=== PATIENT | male | born 1935 | race Caucasian/White ===

== ENCOUNTER → 2016-06-02 | Outpatient (CLI) | payer OTHER ==
[~2016-06-02] MED LIST: ACET-2247 NG; ACET650S14 PR; AMLO-511 PO; ASCO500 NG; ASCO500 PO; ASPI-891 PO; ASPI81 NG; BALS60OI TP; CLIN300C3 NG; COLL30OI TP; DSS100 PO; ENOX40DI9 SQ; FERR-89 NG; GABA-529 PO; GABA250S NG; GLUC1I IM; GUAIF10 PO; HYDR-305 PO; HYDR-309 PO; INSLAN SQ; INSNOV SQ; INSREG SQ; IPRA3AMP4 IH; LACT1CAP62 NG; METF500T4 PO; METF850T2 PO; METO25 PO; MOM30 PO; MULT-1192 PO; OMEP20 NG; POLY15DR38 OP; PROP10 PO; TAMS0.4C32 PO; TRAZ-144 PO; [UNRECOGNIZED DRUG - CODE] PO
== END | disposition home or self-care (01) ==
LOC: RADMN 09:40
PROVIDERS: ATTEND Internal Medicine
DX: R13.12 Dysphagia, oropharyngeal phase (principal)
CPT/HCPCS: 74230; 92611

== ENCOUNTER 2016-07-23 16:13 | Inpatient (IN) | payer MEDICARE, MEDICAID ==
[~2016-07-23] VITALS: Ht 157.5 cm; Wt 60.1 kg
[2016-07-23] MEDS ORDERED: SODIUM CHLORIDE 0.9% 500 ML IV ONE (16:30)
[2016-07-23 16:47] LABS: GLUCOSE,POINT OF CARE 103 MG/DL (70-110)
[2016-07-23 16:52] LABS: GLUCOSE,POINT OF CARE 108 MG/DL (70-110)
[2016-07-23] MEDS ORDERED: ASPI-891 PO (16:52)
[2016-07-23] MEDS ORDERED: DSS100 PO (16:52)
[2016-07-23 16:54] LABS: BASOPHILS % (AUTO) 0.5 % (0.0-2.0); EOSINOPHILS % (AUTO) 3.2 % (1.0-6.0); HEMATOCRIT 28.5 % (41-53); LYMPHOCYTES # (AUTO) 3.4 K/uL (1.0-4.8); LYMPHOCYTES % (AUTO) 26.4 % (22.0-44.0); MEAN CORPUSCULAR HEMOGLOBIN 25.6 pg (26.0-34.0); MEAN CORPUSCULAR HGB CONC 31.7 G/dL (31.0-37.0); MEAN CORPUSCULAR VOLUME 81 fL (80-100); MONOCYTES # (AUTO) 1.4 K/uL (0.1-1.0); MONOCYTES % (AUTO) 10.9 % (2.0-9.0); NEUTROPHILS # (AUTO) 7.7 K/uL (1.8-7.7); PLATELET COUNT (AUTO) 480 K/uL (150-450); RED BLOOD CELL COUNT(AUTO) 3.53 MIL/uL (4.50-5.90); RED CELL DISTRIBUTION WIDTH 19.3 % (11.5-14.5); WHITE BLOOD COUNT (AUTO) 13.1 K/uL (4.5-11.0)
[2016-07-23 16:55] LABS: RBC MORPHOLOGY COMMENT ABNORMAL RBC MORPH
[2016-07-23] MEDS ORDERED: ASCO500 PO (17:04)
[2016-07-23] MEDS ORDERED: OMEP20 NG (17:04)
[2016-07-23] MEDS ORDERED: FERR-89 NG (17:04)
[2016-07-23] MEDS ORDERED: GUAIF10 PO (17:04)
[2016-07-23] MEDS ORDERED: INSLAN SQ (17:04)
[2016-07-23] MEDS ORDERED: GABA-529 PO (17:04)
[2016-07-23] MEDS ORDERED: GLUC1I IM (17:04)
[2016-07-23] MEDS ORDERED: METF500T4 PO (17:04)
[2016-07-23] MEDS ORDERED: PROP10 PO (17:04)
[2016-07-23] MEDS ORDERED: TRAZ-144 PO (17:04)
[2016-07-23] MEDS ORDERED: TAMS0.4C32 PO (17:04)
[2016-07-23] MEDS ORDERED: MULT-1192 PO (17:04)
[2016-07-23] MEDS ORDERED: COLL30OI TP (17:04)
[2016-07-23] MEDS ORDERED: ENOX40DI9 SQ (17:04)
[2016-07-23] MEDS ORDERED: IPRA3AMP4 IH (17:04)
[2016-07-23] MEDS ORDERED: INSNOV SQ (17:04)
[2016-07-23 17:10] LABS: ALANINE AMINOTRANSFERASE 8 U/L (12-78); ALBUMIN 2.1 g/dL (3.4-5.0); ANION GAP 7 mmol/L (8-16); ASPARTATE AMINOTRANSFERASE 16 U/L (15-37); BILIRUBIN,TOTAL 0.2 mg/dL (0.1-1.0); CARBON DIOXIDE 26 mmol/L (22-29); CHLORIDE 102 mmol/L (98-107); CREATININE 0.96 mg/dL (0.60-1.30); GLOMERULAR FILTR. RATE CALC > 60 mL/min (>60); POTASSIUM 4.9 mmol/L (3.5-5.1); SODIUM SERUM 135 mmol/L (136-145); TOTAL PROTEIN, SERUM 8.3 g/dL (6.4-8.2); UREA NITROGEN, BLOOD 21 mg/dL (7-18)
[2016-07-23 17:15] LABS: CALCIUM, TOTAL 9.3 mg/dL (8.8-10.5)
[2016-07-23] MEDS ORDERED: VANCOMYCIN HCL 1 GM/D5% WATER 200 ML IV ONE (17:30)
[2016-07-23 17:47] LABS: APPEARANCE,URINE TURBID (CLEAR); GLUCOSE, URINE (UA) NEGATIVE (NEGATIVE); KETONES,URINE NEGATIVE (NEGATIVE); LEUKOCYTE ESTERASE ,URINE LARGE (NEGATIVE); OCCULT BLOOD,URINE SMALL (NEGATIVE); PROTEIN,URINE SEE CONFIRM (NEGATIVE)
[2016-07-23 17:49] LABS: PROTHROMBIN TIME 10.8 SEC (9.4-11.6)
[2016-07-23 18:22] LABS: ADD UA MICROSCOPIC YES
[2016-07-23 18:24] LABS: SULFOSALICYLIC ACID,URINE 1+ (Negative); WBC,URINE >100 /HPF (0-5)
[2016-07-23 18:26] LABS: SQUAMOUS EPITHELIAL CELL,UR Few /LPF (None Seen)
[2016-07-23 18:57] LABS: GLUCOSE,POINT OF CARE 67 MG/DL (70-110)
[2016-07-23] MEDS ORDERED: DEXTROSE 50%-WATER 25 GM/50 ML SYRINGE IVP ONE (19:15)
[2016-07-23] MEDS ORDERED: BISACODYL 10 MG RECTAL RECTAL SUPPOSITORY PR PRN (19:45)
[2016-07-23] MEDS ORDERED: IPRATROPIUM BROMIDE 0.5 MG/2.5 ML NEB SOLUTION NEB PRN (19:45)
[2016-07-23] MEDS ORDERED: ACETAMINOPHEN 325 MG TABLET PO PRN (19:45)
[2016-07-23] MEDS ORDERED: ONDANSETRON HCL 4 MG/2 ML VIAL IVP PRN (19:45)
[2016-07-23] MEDS ORDERED: MAGNESIUM HYDROXIDE SUSPENSION 30 ML UDCUP PO PRN (19:45)
[2016-07-23] MEDS ORDERED: ZOLPIDEM TARTRATE 5 MG TABLET PO PRN (19:45)
[2016-07-23] MEDS ORDERED: ALBUTEROL SULFATE 2.5 MG/0.5 ML NEB SOLUTION NEB PRN (19:45)
[2016-07-23] MEDS ORDERED: HEPARIN SODIUM,PORCINE 5,000 UNITS/ML VIAL IVP ONE (20:15)
[2016-07-23] MEDS ORDERED: HEPARIN SODIUM,PORCINE 5,000 UNITS/ML VIAL IVP PRN ×2 (20:15)
[2016-07-23 20:52] LABS: PROCALCITONIN (PCT) < 0.05 ng/mL (<0.50)
[2016-07-23] MEDS ORDERED: DOCUSATE SODIUM 100 MG CAPSULE PO SCH (21:00)
[2016-07-23 21:45] VITALS: BP 147/76
[2016-07-23] MEDS: DEXTROSE 5%-0.45% SODIUM CHL 1,000 ML IV SCH (21:56)
[2016-07-23] MEDS: PIPERACILLIN/TAZO 3.375 GM/D5W 50 ML IV SCH (21:56)
[2016-07-23] MEDS: TraZODone HCL 50 MG TABLET PO SCH (22:01)
[2016-07-23] MEDS: ASCORBIC ACID 500 MG TABLET PO SCH (22:01)
[2016-07-23] MEDS: GABAPENTIN 100 MG CAPSULE PO SCH (22:01)
[2016-07-23] MEDS: HEPARIN SODIUM 25000 UNITS/D5W 250 ML IV PRN (22:50)
[2016-07-23 23:34] VITALS: BP 145/71
[2016-07-24] MEDS ORDERED: HEPARIN SODIUM,PORCINE 5,000 UNITS/ML VIAL SQ SCH
[2016-07-24] MEDS: MORPHINE SULFATE 2 MG/ML SYRINGE IVP PRN ×6 (02:12→18:21)
[2016-07-24] MEDS: PIPERACILLIN/TAZO 3.375 GM/D5W 50 ML IV SCH ×4 (02:12→22:50)
[2016-07-24 04:35] VITALS: BP 142/77
[2016-07-24 06:12] LABS: BASOPHILS % (AUTO) 0.9 % (0.0-2.0); EOSINOPHILS % (AUTO) 5.4 % (1.0-6.0); HEMATOCRIT 25.6 % (41-53); HEMOGLOBIN 8.2 g/dL (13.5-17.5); LYMPHOCYTES # (AUTO) 3.2 K/uL (1.0-4.8); LYMPHOCYTES % (AUTO) 28.4 % (22.0-44.0); MEAN CORPUSCULAR HEMOGLOBIN 26.1 pg (26.0-34.0); MEAN CORPUSCULAR HGB CONC 31.9 G/dL (31.0-37.0); MEAN CORPUSCULAR VOLUME 82 fL (80-100); MONOCYTES # (AUTO) 1.2 K/uL (0.1-1.0); MONOCYTES % (AUTO) 10.7 % (2.0-9.0); NEUTROPHILS # (AUTO) 6.1 K/uL (1.8-7.7); NEUTROPHILS % (AUTO) 54.6 % (40.0-70.0); PLATELET COUNT (AUTO) 408 K/uL (150-450); RED BLOOD CELL COUNT(AUTO) 3.13 MIL/uL (4.50-5.90); RED CELL DISTRIBUTION WIDTH 19.2 % (11.5-14.5); WHITE BLOOD COUNT (AUTO) 11.2 K/uL (4.5-11.0)
[2016-07-24 06:46] LABS: ALANINE AMINOTRANSFERASE 7 U/L (12-78); ALBUMIN 1.8 g/dL (3.4-5.0); ANION GAP 11 mmol/L (8-16); ASPARTATE AMINOTRANSFERASE 18 U/L (15-37); BILIRUBIN,TOTAL 0.2 mg/dL (0.1-1.0); CALCIUM, TOTAL 8.4 mg/dL (8.8-10.5); CARBON DIOXIDE 24 mmol/L (22-29); CHLORIDE 104 mmol/L (98-107); CREATININE 0.82 mg/dL (0.60-1.30); GLOMERULAR FILTR. RATE CALC > 60 mL/min (>60); SODIUM SERUM 139 mmol/L (136-145); TOTAL PROTEIN, SERUM 7.2 g/dL (6.4-8.2); UREA NITROGEN, BLOOD 17 mg/dL (7-18)
[2016-07-24 07:05] LABS: RBC MORPHOLOGY COMMENT ABNORMAL RBC MORPH
[2016-07-24 07:15] VITALS: BP 143/80
[2016-07-24 08:03] LABS: HEMOGLOBIN A1C 7.8 % (4.5-6.2)
[2016-07-24] MEDS: PANTOPRAZOLE SODIUM 40 MG/VIAL IVP SCH (08:24)
[2016-07-24] MEDS: TAMSULOSIN HCL 0.4 MG CAPSULE PO SCH (10:11)
[2016-07-24] MEDS: ASCORBIC ACID 500 MG TABLET PO SCH ×2 (10:12→21:01)
[2016-07-24] MEDS: FERROUS SULFATE 325 MG EC TABLET PO SCH (10:12)
[2016-07-24] MEDS: PROPRANOLOL HCL 10 MG TABLET PO SCH (10:12)
[2016-07-24] MEDS: GABAPENTIN 100 MG CAPSULE PO SCH ×3 (10:12→21:01)
[2016-07-24] MEDS: MULTIVITAMINS, THERAPEUTIC TABLET PO SCH (10:12)
[2016-07-24] MEDS: ASPIRIN 325 MG EC TABLET PO SCH (10:13)
[2016-07-24] MEDS: DEXTROSE 5%-0.45% SODIUM CHL 1,000 ML IV SCH (11:41)
[2016-07-24 13:06] VITALS: BP 123/54
[2016-07-24] MEDS ORDERED: GADOBUTROL 1 MMOL/ML 10 ML VIAL IVP ONE (14:30)
[2016-07-24] MEDS ORDERED: LORazepam 2 MG/ML VIAL IVP ONE (14:30)
[2016-07-24] MEDS ORDERED: IOVERSOL 350 MG/ML 100 ML VIAL ONE (14:44)
[2016-07-24 17:28] LABS: APPEARANCE,URINE CLOUDY (CLEAR); GLUCOSE, URINE (UA) NEGATIVE (NEGATIVE); KETONES,URINE NEGATIVE (NEGATIVE); LEUKOCYTE ESTERASE ,URINE LARGE (NEGATIVE); OCCULT BLOOD,URINE NEGATIVE (NEGATIVE); PROTEIN,URINE POS 1+ (NEGATIVE)
[2016-07-24 17:47] LABS: ADD UA MICROSCOPIC YES
[2016-07-24 18:03] LABS: RBC,URINE None Seen /HPF (0-2); WBC,URINE 26-50 /HPF (0-5)
[2016-07-24 19:24] VITALS: BP 146/79
[2016-07-24] MEDS: TraZODone HCL 50 MG TABLET PO SCH (21:01)
[2016-07-24 23:41] VITALS: BP 142/76
[2016-07-25] MEDS: HEPARIN SODIUM 25000 UNITS/D5W 250 ML IV PRN ×2 (00:14→11:02)
[2016-07-25 02:36] LABS: HEMATOCRIT 26.7 % (41-53); HEMOGLOBIN 8.4 g/dL (13.5-17.5)
[2016-07-25] MEDS: PIPERACILLIN/TAZO 3.375 GM/D5W 50 ML IV SCH ×4 (04:35→20:42)
[2016-07-25 05:12] VITALS: BP 153/77
[2016-07-25 07:03] LABS: ALANINE AMINOTRANSFERASE 9 U/L (12-78); ALBUMIN 1.9 g/dL (3.4-5.0); ANION GAP 9 mmol/L (8-16); ASPARTATE AMINOTRANSFERASE 22 U/L (15-37); BILIRUBIN,TOTAL 0.2 mg/dL (0.1-1.0); CALCIUM, TOTAL 8.4 mg/dL (8.8-10.5); CARBON DIOXIDE 25 mmol/L (22-29); CHLORIDE 100 mmol/L (98-107); CREATININE 0.83 mg/dL (0.60-1.30); GLOMERULAR FILTR. RATE CALC > 60 mL/min (>60); POTASSIUM 4.4 mmol/L (3.5-5.1); SODIUM SERUM 134 mmol/L (136-145); TOTAL PROTEIN, SERUM 7.4 g/dL (6.4-8.2); UREA NITROGEN, BLOOD 11 mg/dL (7-18)
[2016-07-25 07:12] VITALS: BP 154/77
[2016-07-25] MEDS: FERROUS SULFATE 325 MG EC TABLET PO SCH (08:00)
[2016-07-25] MEDS: GABAPENTIN 100 MG CAPSULE PO SCH ×3 (09:00→20:42)
[2016-07-25] MEDS: ASCORBIC ACID 500 MG TABLET PO SCH ×2 (09:00→20:42)
[2016-07-25] MEDS: PROPRANOLOL HCL 10 MG TABLET PO SCH (09:00)
[2016-07-25] MEDS: TAMSULOSIN HCL 0.4 MG CAPSULE PO SCH (09:00)
[2016-07-25] MEDS: ASPIRIN 325 MG EC TABLET PO SCH (09:00)
[2016-07-25] MEDS: MULTIVITAMINS, THERAPEUTIC TABLET PO SCH (09:00)
[2016-07-25 09:11] LABS: BASOPHILS % (AUTO) 2.5 % (0.0-2.0); EOSINOPHILS % (AUTO) 5.5 % (1.0-6.0); HEMOGLOBIN 7.9 g/dL (13.5-17.5); LYMPHOCYTES # (AUTO) 3.1 K/uL (1.0-4.8); LYMPHOCYTES % (AUTO) 26.2 % (22.0-44.0); MEAN CORPUSCULAR HEMOGLOBIN 25.5 pg (26.0-34.0); MEAN CORPUSCULAR HGB CONC 31.8 G/dL (31.0-37.0); MEAN CORPUSCULAR VOLUME 80 fL (80-100); MONOCYTES # (AUTO) 1.3 K/uL (0.1-1.0); MONOCYTES % (AUTO) 11.1 % (2.0-9.0); NEUTROPHILS # (AUTO) 6.4 K/uL (1.8-7.7); NEUTROPHILS % (AUTO) 54.7 % (40.0-70.0); PLATELET COUNT (AUTO) 456 K/uL (150-450); RED BLOOD CELL COUNT(AUTO) 3.12 MIL/uL (4.50-5.90); RED CELL DISTRIBUTION WIDTH 18.9 % (11.5-14.5); WHITE BLOOD COUNT (AUTO) 11.7 K/uL (4.5-11.0)
[2016-07-25] MEDS ORDERED: SODIUM CHLORIDE 0.9% 100 ML ONE (09:24)
[2016-07-25] MEDS ORDERED: IOVERSOL 350 MG/ML 100 ML VIAL ONE (09:24)
[2016-07-25 09:26] LABS: INR 1.1 (0.9-1.1); PROTHROMBIN TIME 11.4 SEC (9.4-11.6)
[2016-07-25] MEDS: PANTOPRAZOLE SODIUM 40 MG/VIAL IVP SCH (10:18)
[2016-07-25] MEDS: DEXTROSE 5%-0.45% SODIUM CHL 1,000 ML IV SCH ×2 (10:21→23:04)
[2016-07-25 11:09] VITALS: BP 138/78
[2016-07-25 13:54] LABS: RBC MORPHOLOGY COMMENT ABNORMAL RBC MORPH
[2016-07-25 15:03] VITALS: BP 142/76
[2016-07-25 15:13] LABS: ABG A-A DIFF O2 37.5 mmHg (10-20.0); ABG BASE EXCESS -0.4 mmol/L (-2.0-3.0); ABG HCO3 24.3 mmol/L (22.0-26.0); ABG OXYHEMOGLOBIN 92.9 % (94.0-100.0); ABG PCO2 32 mmHg (35-45); ABG PH 7.477 (7.35-7.450); TEMPERATURE, FAHRENHEIT, BG 98.6 FAHREN (96.0-98.6)
[2016-07-25 15:14] LABS: ALLEN TEST, BLOOD GAS Positive
[2016-07-25] MEDS ORDERED: VANCOMYCIN HCL 1.25 GM in DEXTROSE 5%-WATER 250 ML IV ONE (16:00)
[2016-07-25 18:38] LABS: BASOPHILS % (AUTO) 0.4 % (0.0-2.0); EOSINOPHILS % (AUTO) 3.8 % (1.0-6.0); HEMATOCRIT 25.8 % (41-53); HEMOGLOBIN 8.1 g/dL (13.5-17.5); LYMPHOCYTES % (AUTO) 26.5 % (22.0-44.0); MEAN CORPUSCULAR HEMOGLOBIN 25.4 pg (26.0-34.0); MEAN CORPUSCULAR HGB CONC 31.4 G/dL (31.0-37.0); MEAN CORPUSCULAR VOLUME 81 fL (80-100); MONOCYTES # (AUTO) 1.3 K/uL (0.1-1.0); MONOCYTES % (AUTO) 11.9 % (2.0-9.0); NEUTROPHILS # (AUTO) 6.4 K/uL (1.8-7.7); NEUTROPHILS % (AUTO) 57.4 % (40.0-70.0); PLATELET COUNT (AUTO) 478 K/uL (150-450); RED CELL DISTRIBUTION WIDTH 18.4 % (11.5-14.5); WHITE BLOOD COUNT (AUTO) 11.2 K/uL (4.5-11.0)
[2016-07-25 19:02] LABS: RBC MORPHOLOGY COMMENT ABNORMAL RBC MORPH
[2016-07-25 20:19] VITALS: BP 95/60
[2016-07-25] MEDS: TraZODone HCL 50 MG TABLET PO SCH (20:42)
[2016-07-26 00:07] VITALS: BP 140/63
[2016-07-26] MEDS: MORPHINE SULFATE 2 MG/ML SYRINGE IVP PRN ×2 (00:23→05:23)
[2016-07-26 02:31] LABS: BASOPHILS % (AUTO) 0.6 % (0.0-2.0); EOSINOPHILS % (AUTO) 4.8 % (1.0-6.0); HEMATOCRIT 26.2 % (41-53); HEMOGLOBIN 8.3 g/dL (13.5-17.5); LYMPHOCYTES # (AUTO) 3.5 K/uL (1.0-4.8); LYMPHOCYTES % (AUTO) 27.2 % (22.0-44.0); MEAN CORPUSCULAR HEMOGLOBIN 25.6 pg (26.0-34.0); MEAN CORPUSCULAR HGB CONC 31.7 G/dL (31.0-37.0); MEAN CORPUSCULAR VOLUME 81 fL (80-100); MONOCYTES # (AUTO) 1.5 K/uL (0.1-1.0); MONOCYTES % (AUTO) 12.1 % (2.0-9.0); NEUTROPHILS # (AUTO) 7.1 K/uL (1.8-7.7); NEUTROPHILS % (AUTO) 55.3 % (40.0-70.0); PLATELET COUNT (AUTO) 490 K/uL (150-450); RED BLOOD CELL COUNT(AUTO) 3.25 MIL/uL (4.50-5.90); RED CELL DISTRIBUTION WIDTH 18.8 % (11.5-14.5); WHITE BLOOD COUNT (AUTO) 12.8 K/uL (4.5-11.0)
[2016-07-26 04:30] VITALS: BP 139/78
[2016-07-26] MEDS: PIPERACILLIN/TAZO 3.375 GM/D5W 50 ML IV SCH ×4 (04:36→20:37)
[2016-07-26] MEDS: HEPARIN SODIUM 25000 UNITS/D5W 250 ML IV PRN (05:06)
[2016-07-26 07:11] LABS: ALANINE AMINOTRANSFERASE 10 U/L (12-78); ALBUMIN 1.8 g/dL (3.4-5.0); ANION GAP 10 mmol/L (8-16); ASPARTATE AMINOTRANSFERASE 21 U/L (15-37); BILIRUBIN,TOTAL 0.3 mg/dL (0.1-1.0); CALCIUM, TOTAL 8.3 mg/dL (8.8-10.5); CARBON DIOXIDE 25 mmol/L (22-29); CHLORIDE 103 mmol/L (98-107); CREATININE 0.94 mg/dL (0.60-1.30); GLOMERULAR FILTR. RATE CALC > 60 mL/min (>60); POTASSIUM 3.4 mmol/L (3.5-5.1); SODIUM SERUM 138 mmol/L (136-145); THYROID STIMULATING HORMONE 1.44 uIU/mL (0.36-3.74); TOTAL PROTEIN, SERUM 7.1 g/dL (6.4-8.2); UREA NITROGEN, BLOOD 9 mg/dL (7-18)
[2016-07-26 07:32] VITALS: BP 142/76
[2016-07-26] MEDS: FERROUS SULFATE 325 MG EC TABLET PO SCH (08:00)
[2016-07-26] MEDS: MULTIVITAMINS, THERAPEUTIC TABLET PO SCH (08:25)
[2016-07-26] MEDS: ASCORBIC ACID 500 MG TABLET PO SCH ×2 (08:25→20:28)
[2016-07-26] MEDS: PROPRANOLOL HCL 10 MG TABLET PO SCH (08:25)
[2016-07-26] MEDS: ASPIRIN 325 MG EC TABLET PO SCH (08:25)
[2016-07-26] MEDS: TAMSULOSIN HCL 0.4 MG CAPSULE PO SCH (08:25)
[2016-07-26] MEDS: GABAPENTIN 100 MG CAPSULE PO SCH ×3 (08:25→20:28)
[2016-07-26] MEDS: PANTOPRAZOLE SODIUM 40 MG/VIAL IVP SCH (08:32)
[2016-07-26] MEDS: VANCOMYCIN HCL 1 GM/D5% WATER 200 ML IV SCH ×2 (08:32→20:28)
[2016-07-26] MEDS ORDERED: HEPARIN SODIUM 1000 UNITS/NS 500 ML ONE ×2 (10:56→11:19)
[2016-07-26] MEDS ORDERED: FentaNYL CITRATE-PF 100 MCG/2 ML VIAL ONE (10:56)
[2016-07-26] MEDS ORDERED: MIDAZOLAM HCL 2 MG/2 ML VIAL ONE (10:56)
[2016-07-26] MEDS ORDERED: LIDOCAINE HCL/PF 1% 30 ML VIAL ONE (10:57)
[2016-07-26] MEDS ORDERED: IOHEXOL 180 MG/ML 20 ML VIAL ONE (11:20)
[2016-07-26] MEDS ORDERED: ALTEPLASE 2 MG/VIAL IVCATH ONE (11:30)
[2016-07-26] MEDS ORDERED: HEPARIN SODIUM,PORCINE 1,000 UNITS/ML 10 ML VIAL ONE (11:37)
[2016-07-26] MEDS ORDERED: FentaNYL CITRATE-PF 100 MCG/2 ML VIAL IVP ONE (11:55)
[2016-07-26] MEDS ORDERED: MIDAZOLAM HCL 2 MG/2 ML VIAL IVP ONE (11:55)
[2016-07-26] MEDS ORDERED: IODIXANOL 320 MG/ML 100 ML VIAL ONE (12:01)
[2016-07-26] MEDS: DEXTROSE 5%-0.45% SODIUM CHL 1,000 ML IV SCH (12:20)
[2016-07-26] MEDS ORDERED: IOHEXOL 300 MG/ML 10 ML VIAL ONE (13:06)
[2016-07-26] MEDS ORDERED: HEPARIN SODIUM,PORCINE 5,000 UNITS/ML VIAL IVP ONE (13:10)
[2016-07-26] MEDS ORDERED: CLOPIDOGREL BISULFATE 300 MG TABLET PO ONE (14:30)
[2016-07-26 15:15] VITALS: BP 154/76
[2016-07-26] MEDS: ASPIRIN 81 MG CHEWABLE TABLET PO SCH (15:22)
[2016-07-26 19:24] VITALS: BP 162/84
[2016-07-26] MEDS: TraZODone HCL 50 MG TABLET PO SCH (20:28)
[2016-07-26 23:51] VITALS: BP 146/60
[2016-07-27] MEDS: HYDROCODONE/ACETAMINOPHEN 5-325 MG TABLET PO PRN ×3 (00:26→15:46)
[2016-07-27] MEDS: DEXTROSE 5%-0.45% SODIUM CHL 1,000 ML IV SCH (04:20)
[2016-07-27] MEDS: PIPERACILLIN/TAZO 3.375 GM/D5W 50 ML IV SCH ×4 (04:21→20:24)
[2016-07-27 04:38] LABS: GLUCOSE,POINT OF CARE 182 MG/DL (70-110)
[2016-07-27 04:38] LABS: GLUCOSE,POINT OF CARE 160 MG/DL (70-110)
[2016-07-27 04:38] LABS: GLUCOSE,POINT OF CARE 179 MG/DL (70-110)
[2016-07-27 04:38] LABS: GLUCOSE,POINT OF CARE 117 MG/DL (70-110)
[2016-07-27 04:38] LABS: GLUCOSE,POINT OF CARE 74 MG/DL (70-110)
[2016-07-27 04:38] LABS: GLUCOSE COMMENT 1 Received Meds; GLUCOSE,POINT OF CARE 146 MG/DL (70-110)
[2016-07-27 04:38] LABS: GLUCOSE,POINT OF CARE 147 MG/DL (70-110)
[2016-07-27 04:38] LABS: GLUCOSE,POINT OF CARE 184 MG/DL (70-110)
[2016-07-27 04:42] LABS: GLUCOSE,POINT OF CARE 151 MG/DL (70-110)
[2016-07-27 04:42] LABS: GLUCOSE,POINT OF CARE 229 MG/DL (70-110)
[2016-07-27 04:42] LABS: GLUCOSE,POINT OF CARE 125 MG/DL (70-110)
[2016-07-27 05:10] VITALS: BP 116/60
[2016-07-27 07:34] LABS: ALANINE AMINOTRANSFERASE 6 U/L (12-78); ALBUMIN 1.6 g/dL (3.4-5.0); ANION GAP 9 mmol/L (8-16); ASPARTATE AMINOTRANSFERASE 17 U/L (15-37); BILIRUBIN,TOTAL 0.3 mg/dL (0.1-1.0); CALCIUM, TOTAL 7.9 mg/dL (8.8-10.5); CARBON DIOXIDE 25 mmol/L (22-29); CHLORIDE 101 mmol/L (98-107); CREATININE 1.12 mg/dL (0.60-1.30); GLOMERULAR FILTR. RATE CALC > 60 mL/min (>60); POTASSIUM 3.3 mmol/L (3.5-5.1); SODIUM SERUM 135 mmol/L (136-145); TOTAL PROTEIN, SERUM 6.4 g/dL (6.4-8.2); UREA NITROGEN, BLOOD 13 mg/dL (7-18)
[2016-07-27 07:38] VITALS: BP 132/59
[2016-07-27] MEDS: ASPIRIN 325 MG EC TABLET PO SCH (07:55)
[2016-07-27] MEDS: ASPIRIN 81 MG CHEWABLE TABLET PO SCH (07:55)
[2016-07-27] MEDS: FERROUS SULFATE 325 MG EC TABLET PO SCH (07:55)
[2016-07-27] MEDS: MULTIVITAMINS, THERAPEUTIC TABLET PO SCH (07:55)
[2016-07-27] MEDS: CLOPIDOGREL BISULFATE 75 MG TABLET PO SCH (07:55)
[2016-07-27] MEDS: TAMSULOSIN HCL 0.4 MG CAPSULE PO SCH (07:55)
[2016-07-27] MEDS: DOCUSATE SODIUM 100 MG CAPSULE PO PRN (07:55)
[2016-07-27] MEDS: ASCORBIC ACID 500 MG TABLET PO SCH ×2 (07:56→20:24)
[2016-07-27] MEDS: GABAPENTIN 100 MG CAPSULE PO SCH ×3 (07:56→20:24)
[2016-07-27] MEDS: VANCOMYCIN HCL 1 GM/D5% WATER 200 ML IV SCH (08:04)
[2016-07-27] MEDS: PANTOPRAZOLE SODIUM 40 MG/VIAL IVP SCH (08:04)
[2016-07-27] MEDS: PROPRANOLOL HCL 10 MG TABLET PO SCH (09:00)
[2016-07-27 11:07] VITALS: BP 125/64
[2016-07-27 11:13] VITALS: BP 117/70
[2016-07-27] MEDS ORDERED: POTASSIUM CHLORIDE 20 MEQ ER TABLET PO ONE (14:00)
[2016-07-27] MEDS ORDERED: METF850T2 PO (14:00)
[2016-07-27] MEDS ORDERED: SODIUM CHLORIDE 0.9% 500 ML IV ONE (14:21)
[2016-07-27 15:40] VITALS: BP 145/65
[2016-07-27] MEDS ORDERED: DEXTROSE 50%-WATER 25 GM/50 ML SYRINGE IVP PRN (16:15)
[2016-07-27] MEDS: INSULIN ASPART 100 UNITS/ML SQ PRN ×2 (16:59→20:46)
[2016-07-27 19:29] VITALS: BP 150/64
[2016-07-27] MEDS: TraZODone HCL 50 MG TABLET PO SCH (20:24)
[2016-07-27] MEDS: MORPHINE SULFATE 2 MG/ML SYRINGE IVP PRN (20:25)
[2016-07-28] VITALS (7 sets, daily range): BP systolic 134–160; BP diastolic 63–86
[2016-07-28] MEDS: PIPERACILLIN/TAZO 3.375 GM/D5W 50 ML IV SCH ×4 (03:45→20:10)
[2016-07-28] MEDS: INSULIN ASPART 100 UNITS/ML SQ PRN ×4 (05:54→20:21)
[2016-07-28 07:01] LABS: BASOPHILS % (AUTO) 0.7 % (0.0-2.0); EOSINOPHILS % (AUTO) 5.3 % (1.0-6.0); HEMATOCRIT 26.8 % (41-53); HEMOGLOBIN 8.4 g/dL (13.5-17.5); LYMPHOCYTES # (AUTO) 2.5 K/uL (1.0-4.8); LYMPHOCYTES % (AUTO) 19.2 % (22.0-44.0); MEAN CORPUSCULAR HEMOGLOBIN 25.6 pg (26.0-34.0); MEAN CORPUSCULAR HGB CONC 31.3 G/dL (31.0-37.0); MEAN CORPUSCULAR VOLUME 82 fL (80-100); MONOCYTES # (AUTO) 1.5 K/uL (0.1-1.0); MONOCYTES % (AUTO) 11.5 % (2.0-9.0); NEUTROPHILS # (AUTO) 8.3 K/uL (1.8-7.7); NEUTROPHILS % (AUTO) 63.3 % (40.0-70.0); PLATELET COUNT (AUTO) 492 K/uL (150-450); RED BLOOD CELL COUNT(AUTO) 3.28 MIL/uL (4.50-5.90); RED CELL DISTRIBUTION WIDTH 19.1 % (11.5-14.5); WHITE BLOOD COUNT (AUTO) 13.2 K/uL (4.5-11.0)
[2016-07-28 07:30] LABS: ALANINE AMINOTRANSFERASE 7 U/L (12-78); ALBUMIN 1.6 g/dL (3.4-5.0); ANION GAP 7 mmol/L (8-16); ASPARTATE AMINOTRANSFERASE 16 U/L (15-37); BILIRUBIN,TOTAL 0.2 mg/dL (0.1-1.0); CALCIUM, TOTAL 7.9 mg/dL (8.8-10.5); CARBON DIOXIDE 25 mmol/L (22-29); CHLORIDE 103 mmol/L (98-107); CREATININE 1.14 mg/dL (0.60-1.30); GLOMERULAR FILTR. RATE CALC > 60 mL/min (>60); POTASSIUM 4.5 mmol/L (3.5-5.1); SODIUM SERUM 135 mmol/L (136-145); TOTAL PROTEIN, SERUM 6.6 g/dL (6.4-8.2); UREA NITROGEN, BLOOD 15 mg/dL (7-18)
[2016-07-28] MEDS ORDERED: VANCOMYCIN HCL 1 GM/D5% WATER 200 ML IV SCH (08:00)
[2016-07-28] MEDS: DOCUSATE SODIUM 100 MG CAPSULE PO PRN (08:03)
[2016-07-28] MEDS: ASCORBIC ACID 500 MG TABLET PO SCH ×2 (08:03→20:10)
[2016-07-28] MEDS: CLOPIDOGREL BISULFATE 75 MG TABLET PO SCH (08:03)
[2016-07-28] MEDS: FERROUS SULFATE 325 MG EC TABLET PO SCH (08:03)
[2016-07-28] MEDS: GABAPENTIN 100 MG CAPSULE PO SCH ×3 (08:03→20:10)
[2016-07-28] MEDS: MULTIVITAMINS, THERAPEUTIC TABLET PO SCH (08:03)
[2016-07-28] MEDS: ASPIRIN 81 MG CHEWABLE TABLET PO SCH (08:04)
[2016-07-28] MEDS: TAMSULOSIN HCL 0.4 MG CAPSULE PO SCH (08:04)
[2016-07-28] MEDS: PROPRANOLOL HCL 10 MG TABLET PO SCH (08:04)
[2016-07-28] MEDS: PANTOPRAZOLE SODIUM 40 MG/VIAL IVP SCH (08:22)
[2016-07-28 09:52] LABS: RBC MORPHOLOGY COMMENT ABNORMAL RBC MORPH
[2016-07-28] MEDS: HYDROCODONE/ACETAMINOPHEN 5-325 MG TABLET PO PRN (12:05)
[2016-07-28] MEDS: TraZODone HCL 50 MG TABLET PO SCH (20:10)
[2016-07-29] VITALS (15 sets, daily range): BP systolic 115–199; BP diastolic 64–96
[2016-07-29] MEDS: MORPHINE SULFATE 2 MG/ML SYRINGE IVP PRN ×4 (03:21→19:51)
[2016-07-29] MEDS: PIPERACILLIN/TAZO 3.375 GM/D5W 50 ML IV SCH ×4 (03:21→21:03)
[2016-07-29 07:30] LABS: BASOPHILS # (AUTO) 0.06 K/uL (0.00-0.20); BASOPHILS % (AUTO) 0.4 % (0.0-2.0); EOSINOPHILS # (AUTO) 0.79 K/uL (0.00-0.70); EOSINOPHILS % (AUTO) 5.82 % (1.0-6.0); HEMATOCRIT 24.2 % (41-53); HEMOGLOBIN 7.9 g/dL (13.5-17.5); LYMPHOCYTES # (AUTO) 3.7 K/uL (1.0-4.8); LYMPHOCYTES % (AUTO) 27.4 % (22.0-44.0); MEAN CORPUSCULAR HEMOGLOBIN 26.3 pg (26.0-34.0); MEAN CORPUSCULAR HGB CONC 32.8 G/dL (31.0-37.0); MEAN CORPUSCULAR VOLUME 80 fL (80-100); MONOCYTES # (AUTO) 1.3 K/uL (0.1-1.0); MONOCYTES % (AUTO) 9.8 % (2.0-9.0); NEUTROPHILS # (AUTO) 7.7 K/uL (1.8-7.7); NEUTROPHILS % (AUTO) 56.5 % (40.0-70.0); PLATELET COUNT (AUTO) 498 K/uL (150-450); RED BLOOD CELL COUNT(AUTO) 3.01 MIL/uL (4.50-5.90); RED CELL DISTRIBUTION WIDTH 19.4 % (11.5-14.5); WHITE BLOOD COUNT (AUTO) 13.5 K/uL (4.5-11.0)
[2016-07-29 07:56] LABS: ALANINE AMINOTRANSFERASE 7 U/L (12-78); ALBUMIN 1.7 g/dL (3.4-5.0); ANION GAP 9 mmol/L (8-16); ASPARTATE AMINOTRANSFERASE 18 U/L (15-37); BILIRUBIN,TOTAL 0.2 mg/dL (0.1-1.0); CALCIUM, TOTAL 8.1 mg/dL (8.8-10.5); CARBON DIOXIDE 25 mmol/L (22-29); CHLORIDE 102 mmol/L (98-107); CREATININE 0.96 mg/dL (0.60-1.30); GLOMERULAR FILTR. RATE CALC > 60 mL/min (>60); POTASSIUM 4.2 mmol/L (3.5-5.1); SODIUM SERUM 136 mmol/L (136-145); TOTAL PROTEIN, SERUM 6.8 g/dL (6.4-8.2); UREA NITROGEN, BLOOD 14 mg/dL (7-18)
[2016-07-29] MEDS: FERROUS SULFATE 325 MG EC TABLET PO SCH (08:00)
[2016-07-29] MEDS: PANTOPRAZOLE SODIUM 40 MG/VIAL IVP SCH (08:28)
[2016-07-29] MEDS: VANCOMYCIN HCL 1 GM/D5% WATER 200 ML IV SCH (08:49)
[2016-07-29] MEDS: ASPIRIN 81 MG CHEWABLE TABLET PO SCH (09:00)
[2016-07-29] MEDS: ASCORBIC ACID 500 MG TABLET PO SCH ×2 (09:00→21:01)
[2016-07-29] MEDS: CLOPIDOGREL BISULFATE 75 MG TABLET PO SCH (09:00)
[2016-07-29] MEDS: GABAPENTIN 100 MG CAPSULE PO SCH ×3 (09:00→21:01)
[2016-07-29 09:01] LABS: RBC MORPHOLOGY COMMENT ABNORMAL RBC MORPH
[2016-07-29] MEDS: INSULIN ASPART 100 UNITS/ML SQ PRN ×3 (11:50→21:19)
[2016-07-29] MEDS ORDERED: LIDOCAINE HCL/PF 1% 30 ML VIAL ONE (14:06)
[2016-07-29] MEDS ORDERED: HEPARIN SODIUM 1000 UNITS/NS 500 ML ONE (14:06)
[2016-07-29] MEDS ORDERED: SODIUM BICARBONATE 50 MEQ/50 ML VIAL ONE (14:06)
[2016-07-29] MEDS ORDERED: IODIXANOL 320 MG/ML 100 ML VIAL ONE (14:21)
[2016-07-29] MEDS ORDERED: SODIUM CHLORIDE 0.9% 500 ML IV ONE (14:38)
[2016-07-29] MEDS ORDERED: MIDAZOLAM HCL 2 MG/2 ML VIAL IVP ONE ×2 (14:40→15:53)
[2016-07-29] MEDS ORDERED: FentaNYL CITRATE-PF 100 MCG/2 ML VIAL IVP ONE ×2 (14:40→15:53)
[2016-07-29] MEDS ORDERED: FentaNYL CITRATE-PF 100 MCG/2 ML VIAL ONE (14:40)
[2016-07-29] MEDS ORDERED: MIDAZOLAM HCL 2 MG/2 ML VIAL ONE (14:41)
[2016-07-29] MEDS ORDERED: MAGNESIUM SULFATE 2 GM in DEXTROSE 5%-WATER 50 ML IV PRN (15:00)
[2016-07-29] MEDS ORDERED: MAGNESIUM SULFATE 4 GM/WATER 100 ML IV PRN (15:00)
[2016-07-29] MEDS ORDERED: LIDOCAINE 1% 30 ML/SOD BICARB 8.4% 4 ML SQ ONE (15:02)
[2016-07-29] MEDS ORDERED: HEPARIN SODIUM 1000 UNITS/NS 500 ML IARTER ONE (15:04)
[2016-07-29] MEDS ORDERED: HydrALAZINE HCL 20 MG/ML VIAL IVP ONE (15:22)
[2016-07-29] MEDS ORDERED: HydrALAZINE HCL 20 MG/ML VIAL ONE (15:26)
[2016-07-29] MEDS ORDERED: IODIXANOL 320 MG/ML 100 ML VIAL IARTER ONE (15:40)
[2016-07-29] MEDS ORDERED: HEPARIN SODIUM,PORCINE 5,000 UNITS/ML VIAL IVP ONE (16:20)
[2016-07-29] MEDS ORDERED: IODIXANOL 320 MG/ML 50 ML VIAL ONE (16:37)
[2016-07-29] MEDS: MULTIVITAMINS, THERAPEUTIC TABLET PO SCH (18:10)
[2016-07-29] MEDS: PROPRANOLOL HCL 10 MG TABLET PO SCH (18:11)
[2016-07-29] MEDS: TAMSULOSIN HCL 0.4 MG CAPSULE PO SCH (18:11)
[2016-07-29] MEDS: TraZODone HCL 50 MG TABLET PO SCH (21:01)
[2016-07-29] MEDS: MAGNESIUM OXIDE 400 MG TABLET PO PRN (21:25)
[2016-07-30] VITALS (7 sets, daily range): BP systolic 120–147; BP diastolic 56–77
[2016-07-30] MEDS: MAGNESIUM OXIDE 400 MG TABLET PO PRN ×2 (00:20→10:12)
[2016-07-30] MEDS: MORPHINE SULFATE 2 MG/ML SYRINGE IVP PRN ×2 (00:23→20:36)
[2016-07-30] MEDS: PIPERACILLIN/TAZO 3.375 GM/D5W 50 ML IV SCH ×4 (03:26→20:30)
[2016-07-30] MEDS: HYDROCODONE/ACETAMINOPHEN 5-325 MG TABLET PO PRN ×2 (03:31→20:54)
[2016-07-30] MEDS: INSULIN ASPART 100 UNITS/ML SQ PRN ×4 (06:02→20:38)
[2016-07-30 06:05] LABS: BASOPHILS % (AUTO) 0.5 % (0.0-2.0); EOSINOPHILS % (AUTO) 3.4 % (1.0-6.0); HEMATOCRIT 24.2 % (41-53); HEMOGLOBIN 7.6 g/dL (13.5-17.5); LYMPHOCYTES # (AUTO) 2.9 K/uL (1.0-4.8); LYMPHOCYTES % (AUTO) 23.6 % (22.0-44.0); MEAN CORPUSCULAR HEMOGLOBIN 25.6 pg (26.0-34.0); MEAN CORPUSCULAR HGB CONC 31.4 G/dL (31.0-37.0); MEAN CORPUSCULAR VOLUME 82 fL (80-100); MONOCYTES # (AUTO) 1.5 K/uL (0.1-1.0); MONOCYTES % (AUTO) 12.5 % (2.0-9.0); NEUTROPHILS # (AUTO) 7.3 K/uL (1.8-7.7); PLATELET COUNT (AUTO) 455 K/uL (150-450); RED BLOOD CELL COUNT(AUTO) 2.96 MIL/uL (4.50-5.90); RED CELL DISTRIBUTION WIDTH 18.9 % (11.5-14.5); WHITE BLOOD COUNT (AUTO) 12.2 K/uL (4.5-11.0)
[2016-07-30 07:29] LABS: ALANINE AMINOTRANSFERASE 9 U/L (12-78); ALBUMIN 1.7 g/dL (3.4-5.0); ANION GAP 9 mmol/L (8-16); ASPARTATE AMINOTRANSFERASE 16 U/L (15-37); BILIRUBIN,TOTAL 0.2 mg/dL (0.1-1.0); CALCIUM, TOTAL 8.2 mg/dL (8.8-10.5); CARBON DIOXIDE 25 mmol/L (22-29); CHLORIDE 101 mmol/L (98-107); CREATININE 0.94 mg/dL (0.60-1.30); GLOMERULAR FILTR. RATE CALC > 60 mL/min (>60); POTASSIUM 3.7 mmol/L (3.5-5.1); SODIUM SERUM 135 mmol/L (136-145); TOTAL PROTEIN, SERUM 6.8 g/dL (6.4-8.2); UREA NITROGEN, BLOOD 15 mg/dL (7-18)
[2016-07-30] MEDS: FERROUS SULFATE 325 MG EC TABLET PO SCH (07:54)
[2016-07-30] MEDS: PROPRANOLOL HCL 10 MG TABLET PO SCH (07:54)
[2016-07-30] MEDS: GABAPENTIN 100 MG CAPSULE PO SCH ×3 (07:54→20:30)
[2016-07-30] MEDS: MULTIVITAMINS, THERAPEUTIC TABLET PO SCH (07:55)
[2016-07-30] MEDS: ASCORBIC ACID 500 MG TABLET PO SCH ×2 (07:55→20:30)
[2016-07-30] MEDS: PANTOPRAZOLE SODIUM 40 MG/VIAL IVP SCH (07:57)
[2016-07-30] MEDS: VANCOMYCIN HCL 1 GM/D5% WATER 200 ML IV SCH (08:25)
[2016-07-30] MEDS: CLOPIDOGREL BISULFATE 75 MG TABLET PO SCH (09:00)
[2016-07-30] MEDS: ASPIRIN 81 MG CHEWABLE TABLET PO SCH (09:00)
[2016-07-30] MEDS: TAMSULOSIN HCL 0.4 MG CAPSULE PO SCH (10:20)
[2016-07-30] MEDS ORDERED: 0.9% SODIUM CHLORIDE 10 ML SYRINGE IVP PRN (11:30)
[2016-07-30 11:51] LABS: RBC MORPHOLOGY COMMENT ABNORMAL RBC MORPH
[2016-07-30] MEDS: TraZODone HCL 50 MG TABLET PO SCH (20:30)
[2016-07-31] MEDS: PIPERACILLIN/TAZO 3.375 GM/D5W 50 ML IV SCH ×4 (03:18→20:48)
[2016-07-31 04:42] VITALS: BP 108/84
[2016-07-31] MEDS: HYDROCODONE/ACETAMINOPHEN 5-325 MG TABLET PO PRN ×2 (05:05→20:47)
[2016-07-31] MEDS: INSULIN ASPART 100 UNITS/ML SQ PRN ×4 (06:36→20:49)
[2016-07-31 06:57] LABS: ANION GAP 8 mmol/L (8-16); CALCIUM, TOTAL 7.9 mg/dL (8.8-10.5); CARBON DIOXIDE 26 mmol/L (22-29); CHLORIDE 102 mmol/L (98-107); CREATININE 1.08 mg/dL (0.60-1.30); GLOMERULAR FILTR. RATE CALC > 60 mL/min (>60); POTASSIUM 3.7 mmol/L (3.5-5.1); SODIUM SERUM 136 mmol/L (136-145); UREA NITROGEN, BLOOD 16 mg/dL (7-18)
[2016-07-31 07:22] LABS: BASOPHILS % (AUTO) 0.3 % (0.0-2.0); EOSINOPHILS % (AUTO) 4.2 % (1.0-6.0); HEMATOCRIT 22.7 % (41-53); HEMOGLOBIN 7.3 g/dL (13.5-17.5); LYMPHOCYTES # (AUTO) 3.4 K/uL (1.0-4.8); LYMPHOCYTES % (AUTO) 28.6 % (22.0-44.0); MEAN CORPUSCULAR HGB CONC 31.9 G/dL (31.0-37.0); MEAN CORPUSCULAR VOLUME 82 fL (80-100); MONOCYTES # (AUTO) 1.5 K/uL (0.1-1.0); MONOCYTES % (AUTO) 12.5 % (2.0-9.0); NEUTROPHILS # (AUTO) 6.5 K/uL (1.8-7.7); NEUTROPHILS % (AUTO) 54.4 % (40.0-70.0); PLATELET COUNT (AUTO) 434 K/uL (150-450); RED BLOOD CELL COUNT(AUTO) 2.79 MIL/uL (4.50-5.90); RED CELL DISTRIBUTION WIDTH 19.8 % (11.5-14.5)
[2016-07-31 07:30] VITALS: BP 104/52
[2016-07-31] MEDS: PANTOPRAZOLE SODIUM 40 MG/VIAL IVP SCH (08:14)
[2016-07-31] MEDS: VANCOMYCIN HCL 1 GM/D5% WATER 200 ML IV SCH (08:22)
[2016-07-31] MEDS: PROPRANOLOL HCL 10 MG TABLET PO SCH (09:00)
[2016-07-31 09:26] LABS: RBC MORPHOLOGY COMMENT ABNORMAL RBC MORPH
[2016-07-31] MEDS: FERROUS SULFATE 325 MG EC TABLET PO SCH (09:29)
[2016-07-31] MEDS: TAMSULOSIN HCL 0.4 MG CAPSULE PO SCH (09:30)
[2016-07-31] MEDS: ASPIRIN 81 MG CHEWABLE TABLET PO SCH (09:30)
[2016-07-31] MEDS: CLOPIDOGREL BISULFATE 75 MG TABLET PO SCH (09:31)
[2016-07-31] MEDS: MULTIVITAMINS, THERAPEUTIC TABLET PO SCH (09:31)
[2016-07-31] MEDS: GABAPENTIN 100 MG CAPSULE PO SCH ×3 (09:31→20:47)
[2016-07-31] MEDS: ASCORBIC ACID 500 MG TABLET PO SCH ×2 (09:32→20:47)
[2016-07-31 11:07] VITALS: BP 137/60
[2016-07-31 15:31] VITALS: BP 146/57
[2016-07-31 19:29] VITALS: BP 142/65
[2016-07-31 20:12] LABS: GLUCOSE COMMENT 1 Received Meds; GLUCOSE,POINT OF CARE 255 MG/DL (70-110)
[2016-07-31 20:16] LABS: GLUCOSE COMMENT 1 Doctor Notified; GLUCOSE,POINT OF CARE 326 MG/DL (70-110)
[2016-07-31 20:17] LABS: GLUCOSE COMMENT 1 Received Meds; GLUCOSE,POINT OF CARE 175 MG/DL (70-110)
[2016-07-31 20:27] LABS: GLUCOSE COMMENT 1 Received Meds; GLUCOSE,POINT OF CARE 184 MG/DL (70-110)
[2016-07-31 20:27] LABS: GLUCOSE,POINT OF CARE 121 MG/DL (70-110)
[2016-07-31 20:32] LABS: GLUCOSE,POINT OF CARE 138 MG/DL (70-110)
[2016-07-31 20:32] LABS: GLUCOSE COMMENT 1 Received Meds; GLUCOSE,POINT OF CARE 180 MG/DL (70-110)
[2016-07-31] MEDS: TraZODone HCL 50 MG TABLET PO SCH (20:47)
[2016-08-01] VITALS (7 sets, daily range): BP systolic 114–159; BP diastolic 60–84
[2016-08-01] MEDS: HYDROCODONE/ACETAMINOPHEN 5-325 MG TABLET PO PRN ×3 (00:51→18:05)
[2016-08-01] MEDS: PIPERACILLIN/TAZO 3.375 GM/D5W 50 ML IV SCH ×4 (03:38→20:06)
[2016-08-01] MEDS: INSULIN ASPART 100 UNITS/ML SQ PRN ×4 (06:09→21:25)
[2016-08-01 06:51] LABS: BASOPHILS % (AUTO) 0.7 % (0.0-2.0); EOSINOPHILS % (AUTO) 4.6 % (1.0-6.0); HEMATOCRIT 22.3 % (41-53); HEMOGLOBIN 7.1 g/dL (13.5-17.5); LYMPHOCYTES # (AUTO) 3.6 K/uL (1.0-4.8); LYMPHOCYTES % (AUTO) 30.4 % (22.0-44.0); MEAN CORPUSCULAR VOLUME 81 fL (80-100); MONOCYTES # (AUTO) 1.4 K/uL (0.1-1.0); MONOCYTES % (AUTO) 12.1 % (2.0-9.0); NEUTROPHILS # (AUTO) 6.2 K/uL (1.8-7.7); NEUTROPHILS % (AUTO) 52.2 % (40.0-70.0); PLATELET COUNT (AUTO) 440 K/uL (150-450); RED BLOOD CELL COUNT(AUTO) 2.74 MIL/uL (4.50-5.90); RED CELL DISTRIBUTION WIDTH 19.6 % (11.5-14.5); WHITE BLOOD COUNT (AUTO) 11.9 K/uL (4.5-11.0)
[2016-08-01 07:10] LABS: ANION GAP 8 mmol/L (8-16); CARBON DIOXIDE 26 mmol/L (22-29); CHLORIDE 103 mmol/L (98-107); GLOMERULAR FILTR. RATE CALC > 60 mL/min (>60); SODIUM SERUM 137 mmol/L (136-145); UREA NITROGEN, BLOOD 16 mg/dL (7-18)
[2016-08-01] MEDS: PANTOPRAZOLE SODIUM 40 MG/VIAL IVP SCH (08:17)
[2016-08-01] MEDS: FERROUS SULFATE 325 MG EC TABLET PO SCH (08:17)
[2016-08-01] MEDS: ASCORBIC ACID 500 MG TABLET PO SCH ×2 (08:17→20:06)
[2016-08-01] MEDS: MULTIVITAMINS, THERAPEUTIC TABLET PO SCH (08:17)
[2016-08-01] MEDS: VANCOMYCIN HCL 1 GM/D5% WATER 200 ML IV SCH (08:17)
[2016-08-01] MEDS: CLOPIDOGREL BISULFATE 75 MG TABLET PO SCH (08:17)
[2016-08-01] MEDS: GABAPENTIN 100 MG CAPSULE PO SCH ×3 (08:17→20:06)
[2016-08-01] MEDS: ASPIRIN 81 MG CHEWABLE TABLET PO SCH (08:18)
[2016-08-01] MEDS: PROPRANOLOL HCL 10 MG TABLET PO SCH (08:18)
[2016-08-01] MEDS: TAMSULOSIN HCL 0.4 MG CAPSULE PO SCH (08:18)
[2016-08-01] MEDS: TraZODone HCL 50 MG TABLET PO SCH (20:06)
[2016-08-01] MEDS ORDERED: SODIUM CHLORIDE 0.9% 100 ML ONE (22:02)
[2016-08-02 03:48] VITALS: BP 160/70
[2016-08-02] MEDS: PIPERACILLIN/TAZO 3.375 GM/D5W 50 ML IV SCH ×4 (04:51→20:49)
[2016-08-02] MEDS: HYDROCODONE/ACETAMINOPHEN 5-325 MG TABLET PO PRN ×3 (05:28→18:24)
[2016-08-02] MEDS: INSULIN ASPART 100 UNITS/ML SQ PRN ×4 (05:34→21:28)
[2016-08-02 07:13] VITALS: BP 154/78
[2016-08-02 07:36] LABS: ANION GAP 10 mmol/L (8-16); CALCIUM, TOTAL 8.3 mg/dL (8.8-10.5); CARBON DIOXIDE 25 mmol/L (22-29); CHLORIDE 100 mmol/L (98-107); CREATININE 0.88 mg/dL (0.60-1.30); GLOMERULAR FILTR. RATE CALC > 60 mL/min (>60); SODIUM SERUM 135 mmol/L (136-145); UREA NITROGEN, BLOOD 12 mg/dL (7-18)
[2016-08-02] MEDS: MULTIVITAMINS, THERAPEUTIC TABLET PO SCH (08:45)
[2016-08-02] MEDS: GABAPENTIN 100 MG CAPSULE PO SCH ×3 (08:45→20:49)
[2016-08-02] MEDS: FERROUS SULFATE 325 MG EC TABLET PO SCH (08:46)
[2016-08-02] MEDS: TAMSULOSIN HCL 0.4 MG CAPSULE PO SCH (08:46)
[2016-08-02] MEDS: ASPIRIN 81 MG CHEWABLE TABLET PO SCH (08:46)
[2016-08-02] MEDS: ASCORBIC ACID 500 MG TABLET PO SCH ×2 (08:46→20:49)
[2016-08-02] MEDS: PROPRANOLOL HCL 10 MG TABLET PO SCH (08:46)
[2016-08-02] MEDS: CLOPIDOGREL BISULFATE 75 MG TABLET PO SCH (08:46)
[2016-08-02] MEDS: VANCOMYCIN HCL 1 GM/D5% WATER 200 ML IV SCH (08:47)
[2016-08-02] MEDS: PANTOPRAZOLE SODIUM 40 MG/VIAL IVP SCH (08:48)
[2016-08-02 10:00] LABS: HEMATOCRIT 22.9 % (41-53); HEMOGLOBIN 7.5 g/dL (13.5-17.5)
[2016-08-02] MEDS ORDERED: SODIUM CHLORIDE 0.9% 250 ML IV ONE (10:00)
[2016-08-02 11:27] VITALS: BP 152/80
[2016-08-02 15:18] VITALS: BP 109/57
[2016-08-02 20:14] VITALS: BP 133/68
[2016-08-02] MEDS: TraZODone HCL 50 MG TABLET PO SCH (20:49)
[2016-08-03] VITALS (11 sets, daily range): BP systolic 101–167; BP diastolic 44–89
[2016-08-03] MEDS: HYDROCODONE/ACETAMINOPHEN 5-325 MG TABLET PO PRN ×3 (01:19→21:48)
[2016-08-03] MEDS: PIPERACILLIN/TAZO 3.375 GM/D5W 50 ML IV SCH ×4 (02:37→21:46)
[2016-08-03] MEDS: MORPHINE SULFATE 2 MG/ML SYRINGE IVP PRN ×2 (06:15→23:43)
[2016-08-03] MEDS: INSULIN ASPART 100 UNITS/ML SQ PRN ×3 (06:16→21:53)
[2016-08-03 06:50] LABS: ANION GAP 10 mmol/L (8-16); CALCIUM, TOTAL 9.2 mg/dL (8.8-10.5); CARBON DIOXIDE 26 mmol/L (22-29); CHLORIDE 102 mmol/L (98-107); CREATININE 1.06 mg/dL (0.60-1.30); GLOMERULAR FILTR. RATE CALC > 60 mL/min (>60); POTASSIUM 4.4 mmol/L (3.5-5.1); SODIUM SERUM 138 mmol/L (136-145); UREA NITROGEN, BLOOD 13 mg/dL (7-18)
[2016-08-03] MEDS: VANCOMYCIN HCL 1 GM/D5% WATER 200 ML IV SCH (09:40)
[2016-08-03] MEDS: PANTOPRAZOLE SODIUM 40 MG/VIAL IVP SCH (09:40)
[2016-08-03] MEDS: FERROUS SULFATE 325 MG EC TABLET PO SCH (09:40)
[2016-08-03] MEDS: ASCORBIC ACID 500 MG TABLET PO SCH ×2 (09:41→21:48)
[2016-08-03] MEDS: TAMSULOSIN HCL 0.4 MG CAPSULE PO SCH (09:41)
[2016-08-03] MEDS: PROPRANOLOL HCL 10 MG TABLET PO SCH (09:41)
[2016-08-03] MEDS: CLOPIDOGREL BISULFATE 75 MG TABLET PO SCH (09:42)
[2016-08-03] MEDS: MULTIVITAMINS, THERAPEUTIC TABLET PO SCH (09:42)
[2016-08-03] MEDS: GABAPENTIN 100 MG CAPSULE PO SCH ×3 (09:42→21:48)
[2016-08-03] MEDS: ASPIRIN 81 MG CHEWABLE TABLET PO SCH (09:44)
[2016-08-03] MEDS ORDERED: MIDAZOLAM HCL 2 MG/2 ML VIAL ONE (14:59)
[2016-08-03] MEDS ORDERED: FentaNYL CITRATE-PF 100 MCG/2 ML VIAL ONE (14:59)
[2016-08-03] MEDS ORDERED: LIDOCAINE HCL/PF 1% 30 ML VIAL ONE (15:00)
[2016-08-03] MEDS ORDERED: IODIXANOL 320 MG/ML 100 ML VIAL ONE (15:00)
[2016-08-03] MEDS ORDERED: SODIUM BICARBONATE 50 MEQ/50 ML VIAL ONE (15:00)
[2016-08-03] MEDS ORDERED: HEPARIN SODIUM 1000 UNITS/NS 500 ML ONE ×2 (15:01→15:32)
[2016-08-03] MEDS ORDERED: MIDAZOLAM HCL 2 MG/2 ML VIAL IVP ONE (15:45)
[2016-08-03] MEDS ORDERED: HEPARIN SODIUM 1000 UNITS/NS 500 ML IV ONE (15:45)
[2016-08-03] MEDS ORDERED: LIDOCAINE 1% 30 ML/SOD BICARB 8.4% 4 ML SQ ONE (15:45)
[2016-08-03] MEDS ORDERED: FentaNYL CITRATE-PF 100 MCG/2 ML VIAL IVP ONE (15:45)
[2016-08-03] MEDS: TraZODone HCL 50 MG TABLET PO SCH (21:48)
[2016-08-04] VITALS: BP 134/64
[2016-08-04] MEDS: PIPERACILLIN/TAZO 3.375 GM/D5W 50 ML IV SCH ×3 (02:24→15:30)
[2016-08-04] MEDS: HYDROCODONE/ACETAMINOPHEN 5-325 MG TABLET PO PRN (03:09)
[2016-08-04 03:57] VITALS: BP 116/53
[2016-08-04 04:00] VITALS: BP 116/53
[2016-08-04] MEDS: INSULIN ASPART 100 UNITS/ML SQ PRN ×2 (06:11→11:57)
[2016-08-04 06:21] LABS: ANION GAP 7 mmol/L (8-16); CALCIUM, TOTAL 8.1 mg/dL (8.8-10.5); CARBON DIOXIDE 27 mmol/L (22-29); CHLORIDE 101 mmol/L (98-107); CREATININE 1.02 mg/dL (0.60-1.30); GLOMERULAR FILTR. RATE CALC > 60 mL/min (>60); POTASSIUM 4.3 mmol/L (3.5-5.1); SODIUM SERUM 135 mmol/L (136-145); UREA NITROGEN, BLOOD 16 mg/dL (7-18)
[2016-08-04 06:43] LABS: GLUCOSE COMMENT 1 Received Meds; GLUCOSE,POINT OF CARE 190 MG/DL (70-110)
[2016-08-04 06:43] LABS: GLUCOSE COMMENT 1 Received Meds; GLUCOSE,POINT OF CARE 180 MG/DL (70-110)
[2016-08-04 06:43] LABS: GLUCOSE COMMENT 1 Received Meds; GLUCOSE,POINT OF CARE 213 MG/DL (70-110)
[2016-08-04 06:43] LABS: GLUCOSE COMMENT 1 Received Meds; GLUCOSE,POINT OF CARE 247 MG/DL (70-110)
[2016-08-04 06:43] LABS: GLUCOSE COMMENT 1 Received Meds; GLUCOSE,POINT OF CARE 206 MG/DL (70-110)
[2016-08-04 06:47] LABS: GLUCOSE COMMENT 1 Received Meds; GLUCOSE,POINT OF CARE 161 MG/DL (70-110)
[2016-08-04 06:47] LABS: GLUCOSE COMMENT 1 Received Meds; GLUCOSE,POINT OF CARE 235 MG/DL (70-110)
[2016-08-04 06:48] LABS: GLUCOSE COMMENT 1 Received Meds; GLUCOSE,POINT OF CARE 274 MG/DL (70-110)
[2016-08-04 06:48] LABS: GLUCOSE COMMENT 1 Received Meds; GLUCOSE,POINT OF CARE 154 MG/DL (70-110)
[2016-08-04 06:48] LABS: GLUCOSE COMMENT 1 Received Meds; GLUCOSE,POINT OF CARE 277 MG/DL (70-110)
[2016-08-04 06:52] LABS: GLUCOSE COMMENT 1 Received Meds; GLUCOSE,POINT OF CARE 213 MG/DL (70-110)
[2016-08-04 07:12] LABS: GLUCOSE COMMENT 1 Received Meds; GLUCOSE,POINT OF CARE 183 MG/DL (70-110)
[2016-08-04 07:12] LABS: GLUCOSE COMMENT 1 Received Meds; GLUCOSE,POINT OF CARE 165 MG/DL (70-110)
[2016-08-04 07:34] VITALS: BP 147/72
[2016-08-04] MEDS: CLOPIDOGREL BISULFATE 75 MG TABLET PO SCH (08:57)
[2016-08-04] MEDS: ASPIRIN 81 MG CHEWABLE TABLET PO SCH (08:57)
[2016-08-04] MEDS: PROPRANOLOL HCL 10 MG TABLET PO SCH (08:57)
[2016-08-04] MEDS: FERROUS SULFATE 325 MG EC TABLET PO SCH (08:57)
[2016-08-04] MEDS: PANTOPRAZOLE SODIUM 40 MG/VIAL IVP SCH (08:59)
[2016-08-04] MEDS: GABAPENTIN 100 MG CAPSULE PO SCH ×2 (08:59→15:32)
[2016-08-04] MEDS: TAMSULOSIN HCL 0.4 MG CAPSULE PO SCH (08:59)
[2016-08-04] MEDS: MULTIVITAMINS, THERAPEUTIC TABLET PO SCH (08:59)
[2016-08-04] MEDS: ASCORBIC ACID 500 MG TABLET PO SCH (08:59)
[2016-08-04] MEDS: VANCOMYCIN HCL 1 GM/D5% WATER 200 ML IV SCH (09:01)
[2016-08-04 11:32] VITALS: BP 136/68
[2016-08-04 16:07] VITALS: BP 132/67
[2016-08-06 12:57] LABS: GLUCOSE COMMENT 1 Received Meds; GLUCOSE,POINT OF CARE 231 MG/DL (70-110)
[2016-08-07 16:48] LABS: GLUCOSE,POINT OF CARE 206 MG/DL (70-110)
[2016-08-07 16:48] LABS: GLUCOSE,POINT OF CARE 172 MG/DL (70-110)
[2016-08-07 16:52] LABS: GLUCOSE,POINT OF CARE 138 MG/DL (70-110)
[2016-08-07 16:53] LABS: GLUCOSE,POINT OF CARE 206 MG/DL (70-110)
[2016-08-07 16:53] LABS: GLUCOSE COMMENT 1 Received Meds; GLUCOSE,POINT OF CARE 203 MG/DL (70-110)
[2016-08-07 16:53] LABS: GLUCOSE COMMENT 1 Received Meds; GLUCOSE,POINT OF CARE 211 MG/DL (70-110)
[2016-08-07 16:53] LABS: GLUCOSE COMMENT 1 Received Meds; GLUCOSE,POINT OF CARE 190 MG/DL (70-110)
[2016-09-23] MEDS ORDERED: GABA250S NG (22:47)
[2016-10-07] MEDS ORDERED: LACT1CAP62 NG (19:48)
[2016-10-07] MEDS ORDERED: ASPI81 NG (19:48)
[2016-10-07] MEDS ORDERED: ASCO500 NG (19:48)
[2016-10-07] MEDS ORDERED: CLIN300C3 NG (19:48)
[2016-10-07] MEDS ORDERED: COLL30OI TP (19:58)
[2016-10-07] MEDS ORDERED: POLY15DR38 OU (19:58)
[2016-10-07] MEDS ORDERED: ACET-2247 NG (19:58)
[2016-10-07] MEDS ORDERED: TAMS0.4C32 PO (19:58)
[2016-10-07] MEDS ORDERED: BALS60OI TP (19:58)
[2016-10-07] MEDS ORDERED: MOM30 PO (19:58)
[2016-10-07] MEDS ORDERED: HYDR-305 PO (19:58)
[2016-10-07] MEDS ORDERED: INSREG SQ (20:02)
== END 2016-08-04 18:30 | DRG 853 ==
LOC: EMS 16:16 → 5S 18:22
PROVIDERS: ADMIT Hospitalist; ATTEND Hospitalist
PROC: 047L3ZZ Dilation of Left Femoral Artery, Percutaneous Approach (ICD-10-PCS; principal; 2016-07-26)
PROC: 047K3ZZ Dilation of Right Femoral Artery, Percutaneous Approach (ICD-10-PCS; 2016-07-29)
PROC: 047K3ZZ Dilation of Right Femoral Artery, Percutaneous Approach (ICD-10-PCS; 2016-08-03)
PROC: 047M3ZZ Dilation of Right Popliteal Artery, Percutaneous Approach (ICD-10-PCS; 2016-08-03)
DX: A41.9 Sepsis, unspecified organism (principal); G93.41 Metabolic encephalopathy; E43 Unspecified severe protein-calorie malnutrition; I63.9 Cerebral infarction, unspecified; E11.52 Type 2 diabetes mellitus with diabetic peripheral angiopathy with gangrene; N39.0 Urinary tract infection, site not specified; M86.8X6 Other osteomyelitis, lower leg; L03.90 Cellulitis, unspecified; L97.319 Non-pressure chronic ulcer of right ankle with unspecified severity; I74.8 Embolism and thrombosis of other arteries; G81.94 Hemiplegia, unspecified affecting left nondominant side; N40.0 Benign prostatic hyperplasia without lower urinary tract symptoms; E78.5 Hyperlipidemia, unspecified; I10 Essential (primary) hypertension; D50.9 Iron deficiency anemia, unspecified; J44.9 Chronic obstructive pulmonary disease, unspecified; E88.09 Other disorders of plasma-protein metabolism, not elsewhere classified; R13.10 Dysphagia, unspecified; I70.202 Unspecified atherosclerosis of native arteries of extremities, left leg; Z53.29 Procedure and treatment not carried out because of patient's decision for other reasons; B96.20 Unspecified Escherichia coli [E. coli] as the cause of diseases classified elsewhere; E11.69 Type 2 diabetes mellitus with other specified complication; E11.649 Type 2 diabetes mellitus with hypoglycemia without coma; E11.622 Type 2 diabetes mellitus with other skin ulcer; Z68.24 Body mass index [BMI] 24.0-24.9, adult; Z79.4 Long term (current) use of insulin; Z79.82 Long term (current) use of aspirin
CPT/HCPCS: 36200; 70450; 70496; 73720; 75630; 75635; 75716; 75774; 75962; 76937; 82271; 82607; 82746; 82805; 82948; 82962; 83036; 83735; 84145; 84439; 84443; 85014; 85018; 87040; 87081; 87086; 92526; 92610; 93005; 93306; 93925; 96365; 96366; 96375; 99285; A9585; C9113; G0480; J0360; J1644; J2250; J2270; J2543; J2997; J3010; J3370; J3490; J7040; J7050; J7060; Q9965; Q9967

== ENCOUNTER 2016-08-06 19:57 | Inpatient (IN) | payer MEDICARE, MEDICAID ==
[~2016-08-06] VITALS: Ht 157.5 cm; Wt 60.4 kg
[~2016-08-06 19:57] MED LIST changes: -ACET-2247 NG; -ACET650S14 PR; -AMLO-511 PO; -ASCO500 NG; -ASPI81 NG; -BALS60OI TP; -CLIN300C3 NG; -GABA250S NG; -HYDR-305 PO; -HYDR-309 PO; -INSREG SQ; -LACT1CAP62 NG; -METF500T4 PO; -METO25 PO; -MOM30 PO; -POLY15DR38 OP; -[UNRECOGNIZED DRUG - CODE] PO
[2016-08-06 22:15] LABS: BASOPHILS % (AUTO) 0.4 % (0.0-2.0); EOSINOPHILS % (AUTO) 0.2 % (1.0-6.0); HEMATOCRIT 27.6 % (41-53); HEMOGLOBIN 8.4 g/dL (13.5-17.5); LYMPHOCYTES # (AUTO) 3.2 K/uL (1.0-4.8); LYMPHOCYTES % (AUTO) 12.9 % (22.0-44.0); MEAN CORPUSCULAR HEMOGLOBIN 24.6 pg (26.0-34.0); MEAN CORPUSCULAR HGB CONC 30.5 G/dL (31.0-37.0); MEAN CORPUSCULAR VOLUME 81 fL (80-100); MONOCYTES # (AUTO) 2.2 K/uL (0.1-1.0); MONOCYTES % (AUTO) 9.1 % (2.0-9.0); NEUTROPHILS # (AUTO) 18.9 K/uL (1.8-7.7); NEUTROPHILS % (AUTO) 77.4 % (40.0-70.0); PLATELET COUNT (AUTO) 512 K/uL (150-450); RED BLOOD CELL COUNT(AUTO) 3.41 MIL/uL (4.50-5.90); RED CELL DISTRIBUTION WIDTH 20.5 % (11.5-14.5); WHITE BLOOD COUNT (AUTO) 24.4 K/uL (4.5-11.0)
[2016-08-06 22:25] LABS: ANION GAP 12 mmol/L (8-16); CALCIUM, TOTAL 8.7 mg/dL (8.8-10.5); CARBON DIOXIDE 25 mmol/L (22-29); CHLORIDE 106 mmol/L (98-107); CREATININE 1.25 mg/dL (0.60-1.30); GLOMERULAR FILTR. RATE CALC 56 mL/min (>60); SODIUM SERUM 143 mmol/L (136-145); UREA NITROGEN, BLOOD 20 mg/dL (7-18)
[2016-08-06 22:31] LABS: ALANINE AMINOTRANSFERASE 10 U/L (12-78); ALBUMIN 1.7 g/dL (3.4-5.0); ASPARTATE AMINOTRANSFERASE 13 U/L (15-37); BILIRUBIN,TOTAL 0.3 mg/dL (0.1-1.0); TOTAL PROTEIN, SERUM 7.5 g/dL (6.4-8.2)
[2016-08-06 22:40] LABS: APPEARANCE,URINE TURBID (CLEAR); GLUCOSE, URINE (UA) NEGATIVE (NEGATIVE); KETONES,URINE TRACE mg/dL (NEGATIVE); LEUKOCYTE ESTERASE ,URINE NEGATIVE (NEGATIVE); OCCULT BLOOD,URINE NEGATIVE (NEGATIVE); PROTEIN,URINE SEE CONFIRM (NEGATIVE)
[2016-08-06 22:41] LABS: ADD UA MICROSCOPIC YES
[2016-08-06] MEDS ORDERED: MORPHINE SULFATE 4 MG/ML SYRINGE IVP ONE (22:45)
[2016-08-06 22:51] LABS: SULFOSALICYLIC ACID,URINE 3+ (Negative)
[2016-08-06 22:53] LABS: FINE GRANULAR CASTS,URINE 0-2 /LPF (None Seen)
[2016-08-06 22:54] LABS: SQUAMOUS EPITHELIAL CELL,UR Few /LPF (None Seen)
[2016-08-06 22:55] LABS: RBC,URINE 0-2 /HPF (0-2)
[2016-08-06 22:57] LABS: LACTIC ACID 2.1 mmol/L (0.4-2.0)
[2016-08-07] MEDS ORDERED: CefoTEtan DISOD 2 GM/DEXTROSE 50 ML IV ONE
[2016-08-07 00:12] LABS: REFLEX LACTIC ACID? YES YES
[2016-08-07] MEDS ORDERED: COLL30OI TP (00:21)
[2016-08-07] MEDS ORDERED: BALS60OI TP (00:21)
[2016-08-07] MEDS ORDERED: HYDR-309 PO (00:26)
[2016-08-07] MEDS ORDERED: ACET650S14 PR (00:26)
[2016-08-07] MEDS ORDERED: PIPERACILLIN/TAZO 3.375 GM/D5W 50 ML IV ONE (00:45)
[2016-08-07] MEDS ORDERED: CLOPIDOGREL BISULFATE 75 MG TABLET PO ONE (00:45)
[2016-08-07] MEDS ORDERED: OxyCODONE HCL/ACETAMINOPHEN 5-325 MG TABLET PO PRN (01:00)
[2016-08-07] MEDS ORDERED: BISACODYL 10 MG RECTAL RECTAL SUPPOSITORY PR PRN (01:00)
[2016-08-07] MEDS ORDERED: MAGNESIUM HYDROXIDE SUSPENSION 30 ML UDCUP PO PRN (01:00)
[2016-08-07] MEDS ORDERED: ONDANSETRON HCL 4 MG/2 ML VIAL IVP PRN (01:00)
[2016-08-07] MEDS ORDERED: ZOLPIDEM TARTRATE 5 MG TABLET PO PRN (01:00)
[2016-08-07 02:26] VITALS: BP 136/82
[2016-08-07 04:08] VITALS: BP 95/55
[2016-08-07] MEDS: ACETAMINOPHEN 325 MG TABLET PO PRN ×2 (06:05→16:43)
[2016-08-07] MEDS ORDERED: PNEUMOCOCCAL VACCINE POLYVALENT 0.5 ML VIAL [PPSV23] IM ONE (06:45)
[2016-08-07 06:56] LABS: BASOPHILS % (AUTO) 1.1 % (0.0-2.0); EOSINOPHILS % (AUTO) 0.7 % (1.0-6.0); HEMATOCRIT 24.1 % (41-53); HEMOGLOBIN 7.5 g/dL (13.5-17.5); LYMPHOCYTES % (AUTO) 9.8 % (22.0-44.0); MEAN CORPUSCULAR HEMOGLOBIN 25.4 pg (26.0-34.0); MEAN CORPUSCULAR HGB CONC 31.3 G/dL (31.0-37.0); MEAN CORPUSCULAR VOLUME 81 fL (80-100); MONOCYTES # (AUTO) 2.3 K/uL (0.1-1.0); MONOCYTES % (AUTO) 11.4 % (2.0-9.0); NEUTROPHILS # (AUTO) 15.4 K/uL (1.8-7.7); PLATELET COUNT (AUTO) 446 K/uL (150-450); RBC MORPHOLOGY COMMENT ABNORMAL RBC MORPH; RED BLOOD CELL COUNT(AUTO) 2.97 MIL/uL (4.50-5.90); RED CELL DISTRIBUTION WIDTH 20.6 % (11.5-14.5); WHITE BLOOD COUNT (AUTO) 20.1 K/uL (4.5-11.0)
[2016-08-07 07:25] VITALS: BP 95/60
[2016-08-07 07:45] LABS: ALBUMIN 1.5 g/dL (3.4-5.0); BILIRUBIN,TOTAL 0.2 mg/dL (0.1-1.0); CALCIUM, TOTAL 8.3 mg/dL (8.8-10.5); CREATININE 1.37 mg/dL (0.60-1.30); POTASSIUM 3.5 mmol/L (3.5-5.1); TOTAL PROTEIN, SERUM 6.9 g/dL (6.4-8.2)
[2016-08-07] MEDS: DOCUSATE SODIUM 100 MG CAPSULE PO SCH ×2 (09:00→20:02)
[2016-08-07] MEDS: PROPRANOLOL HCL 10 MG TABLET PO SCH (09:00)
[2016-08-07] MEDS: GABAPENTIN 100 MG CAPSULE PO SCH ×3 (09:00→20:41)
[2016-08-07] MEDS: MULTIVITAMINS, THERAPEUTIC TABLET PO SCH (10:26)
[2016-08-07] MEDS: TAMSULOSIN HCL 0.4 MG CAPSULE PO SCH (10:26)
[2016-08-07] MEDS: FERROUS SULFATE 325 MG EC TABLET PO SCH (10:27)
[2016-08-07] MEDS: ASCORBIC ACID 500 MG TABLET PO SCH ×2 (10:27→20:41)
[2016-08-07] MEDS: ASPIRIN 325 MG EC TABLET PO SCH (10:28)
[2016-08-07] MEDS: PANTOPRAZOLE SODIUM 40 MG/VIAL IVP SCH (10:43)
[2016-08-07] MEDS: HEPARIN SODIUM,PORCINE 5,000 UNITS/ML VIAL SQ SCH ×3 (10:43→23:35)
[2016-08-07 12:12] VITALS: BP 103/55
[2016-08-07 12:13] LABS: GLUCOSE,POINT OF CARE 283 MG/DL (70-110)
[2016-08-07 16:13] VITALS: BP 107/64
[2016-08-07 19:14] VITALS: BP 96/55
[2016-08-07] MEDS ORDERED: DEXTROSE 50%-WATER 25 GM/50 ML SYRINGE IVP PRN (19:15)
[2016-08-07] MEDS ORDERED: PIPERACILLIN/TAZO 3.375 GM/D5W 50 ML IV SCH (20:00)
[2016-08-07] MEDS ORDERED: SODIUM CHLORIDE 0.9% 250 ML IV ONE (20:39)
[2016-08-07] MEDS: MetroNIDAZOLE 500 MG TABLET PO SCH (20:41)
[2016-08-07] MEDS: TraZODone HCL 50 MG TABLET PO SCH (21:00)
[2016-08-07] MEDS: INSULIN ASPART 100 UNITS/ML SQ PRN (21:02)
[2016-08-08] VITALS (8 sets, daily range): BP systolic 90–127; BP diastolic 52–67
[2016-08-08 01:27] LABS: GLUCOSE COMMENT 1 Received Meds; GLUCOSE,POINT OF CARE 355 MG/DL (70-110)
[2016-08-08] MEDS: ACETAMINOPHEN 325 MG TABLET PO PRN ×2 (04:38→16:39)
[2016-08-08] MEDS: MetroNIDAZOLE 500 MG TABLET PO SCH ×3 (04:38→16:36)
[2016-08-08] MEDS: CefoTEtan DISOD 1 GM/DEXTROSE 50 ML IV SCH ×2 (06:11→17:20)
[2016-08-08] MEDS: INSULIN ASPART 100 UNITS/ML SQ PRN ×5 (06:24→20:26)
[2016-08-08 07:16] LABS: HEMOGLOBIN 7.2 g/dL (13.5-17.5); MEAN CORPUSCULAR HEMOGLOBIN 26.1 pg (26.0-34.0); MEAN CORPUSCULAR HGB CONC 32.6 G/dL (31.0-37.0); MEAN CORPUSCULAR VOLUME 80 fL (80-100); PLATELET COUNT (AUTO) 408 K/uL (150-450); RED BLOOD CELL COUNT(AUTO) 2.74 MIL/uL (4.50-5.90); RED CELL DISTRIBUTION WIDTH 20.8 % (11.5-14.5); WHITE BLOOD COUNT (AUTO) 17.1 K/uL (4.5-11.0)
[2016-08-08 07:23] LABS: CALCIUM, TOTAL 8.3 mg/dL (8.8-10.5); POTASSIUM 3.1 mmol/L (3.5-5.1)
[2016-08-08] MEDS: HEPARIN SODIUM,PORCINE 5,000 UNITS/ML VIAL SQ SCH ×2 (08:11→16:40)
[2016-08-08] MEDS: MULTIVITAMINS, THERAPEUTIC TABLET PO SCH (08:11)
[2016-08-08] MEDS: PANTOPRAZOLE SODIUM 40 MG/VIAL IVP SCH (08:11)
[2016-08-08] MEDS: FERROUS SULFATE 325 MG EC TABLET PO SCH (08:12)
[2016-08-08] MEDS: TAMSULOSIN HCL 0.4 MG CAPSULE PO SCH (08:12)
[2016-08-08] MEDS: ASPIRIN 325 MG EC TABLET PO SCH (08:12)
[2016-08-08] MEDS: GABAPENTIN 100 MG CAPSULE PO SCH ×3 (08:12→20:10)
[2016-08-08] MEDS: ASCORBIC ACID 500 MG TABLET PO SCH ×2 (08:12→20:10)
[2016-08-08] MEDS: PROPRANOLOL HCL 10 MG TABLET PO SCH (08:13)
[2016-08-08] MEDS: DOCUSATE SODIUM 100 MG CAPSULE PO SCH ×2 (08:24→20:10)
[2016-08-08 08:48] LABS: BAND NEUTROPHILS % (MANUAL) 31 % (1-5); LYMPHOCYTES % (MANUAL) 11 % (22-44); RBC MORPHOLOGY COMMENT ABNORMAL RBC MORPH; TOTAL CELLS COUNTED 100
[2016-08-08 09:17] LABS: GLUCOSE COMMENT 1 Received Meds; GLUCOSE,POINT OF CARE 237 MG/DL (70-110)
[2016-08-08] MEDS ORDERED: SODIUM CHLORIDE 0.9% 250 ML IV ONE ×2 (12:08→12:30)
[2016-08-08] MEDS ORDERED: POTASSIUM CHLORIDE 10% 40 MEQ/30 ML LIQUID UDCUP PO ONE (13:00)
[2016-08-08 13:51] LABS: ADD UA MICROSCOPIC YES; APPEARANCE,URINE TURBID (CLEAR); GLUCOSE, URINE (UA) NEGATIVE (NEGATIVE); KETONES,URINE TRACE mg/dL (NEGATIVE); LEUKOCYTE ESTERASE ,URINE TRACE (NEGATIVE); OCCULT BLOOD,URINE NEGATIVE (NEGATIVE); PROTEIN,URINE SEE CONFIRM (NEGATIVE)
[2016-08-08 13:53] LABS: SULFOSALICYLIC ACID,URINE 3+ (Negative)
[2016-08-08 14:00] LABS: RBC,URINE 0-2 /HPF (0-2)
[2016-08-08 14:01] LABS: AMORPHOUS SEDIMENT,UR Many /LPF (None Seen); SQUAMOUS EPITHELIAL CELL,UR Few /LPF (None Seen); URIC ACID CRYSTALS,URINE Many /LPF (None Seen)
[2016-08-08 18:47] LABS: GLUCOSE COMMENT 1 Received Meds; GLUCOSE,POINT OF CARE 248 MG/DL (70-110)
[2016-08-08] MEDS: TraZODone HCL 50 MG TABLET PO SCH (20:10)
[2016-08-08 20:23] LABS: GLUCOSE COMMENT 1 Received Meds; GLUCOSE,POINT OF CARE 275 MG/DL (70-110)
[2016-08-09] MEDS: HEPARIN SODIUM,PORCINE 5,000 UNITS/ML VIAL SQ SCH ×4 (00:35→23:29)
[2016-08-09] MEDS: MetroNIDAZOLE 500 MG/NACL 100 ML IV SCH ×4 (00:36→23:29)
[2016-08-09 04:25] VITALS: BP 98/57
[2016-08-09] MEDS: CefoTEtan DISOD 1 GM/DEXTROSE 50 ML IV SCH (05:40)
[2016-08-09] MEDS: INSULIN ASPART 100 UNITS/ML SQ PRN ×4 (05:47→20:43)
[2016-08-09 07:31] VITALS: BP 90/52
[2016-08-09] MEDS: DOCUSATE SODIUM 100 MG CAPSULE PO SCH ×2 (09:00→20:07)
[2016-08-09] MEDS: PROPRANOLOL HCL 10 MG TABLET PO SCH (09:00)
[2016-08-09] MEDS: GABAPENTIN 100 MG CAPSULE PO SCH ×3 (09:00→20:02)
[2016-08-09 09:22] LABS: GLUCOSE COMMENT 1 Received Meds; GLUCOSE,POINT OF CARE 321 MG/DL (70-110)
[2016-08-09 09:22] LABS: GLUCOSE COMMENT 1 Received Meds; GLUCOSE,POINT OF CARE 275 MG/DL (70-110)
[2016-08-09] MEDS: PANTOPRAZOLE SODIUM 40 MG/VIAL IVP SCH (09:28)
[2016-08-09] MEDS: TAMSULOSIN HCL 0.4 MG CAPSULE PO SCH (09:28)
[2016-08-09] MEDS: MULTIVITAMINS, THERAPEUTIC TABLET PO SCH (09:28)
[2016-08-09] MEDS: ASCORBIC ACID 500 MG TABLET PO SCH ×2 (09:28→20:02)
[2016-08-09] MEDS: FERROUS SULFATE 325 MG EC TABLET PO SCH (09:28)
[2016-08-09] MEDS: ASPIRIN 325 MG EC TABLET PO SCH (09:29)
[2016-08-09] MEDS ORDERED: SODIUM CHLORIDE 0.9% 100 ML ONE (09:43)
[2016-08-09 11:18] VITALS: BP 95/54
[2016-08-09 16:12] VITALS: BP 120/63
[2016-08-09 17:08] LABS: CALCIUM, TOTAL 8.5 mg/dL (8.8-10.5); CREATININE 3.33 mg/dL (0.60-1.30); POTASSIUM 3.4 mmol/L (3.5-5.1)
[2016-08-09 17:14] LABS: ALBUMIN 1.2 g/dL (3.4-5.0); BILIRUBIN,TOTAL 0.2 mg/dL (0.1-1.0); TOTAL PROTEIN, SERUM 6.1 g/dL (6.4-8.2)
[2016-08-09 17:21] LABS: HEMOGLOBIN 7.7 g/dL (13.5-17.5); MEAN CORPUSCULAR HEMOGLOBIN 25.3 pg (26.0-34.0); MEAN CORPUSCULAR HGB CONC 32.2 G/dL (31.0-37.0); MEAN CORPUSCULAR VOLUME 79 fL (80-100); PLATELET COUNT (AUTO) 458 K/uL (150-450); RED BLOOD CELL COUNT(AUTO) 3.05 MIL/uL (4.50-5.90); RED CELL DISTRIBUTION WIDTH 20.9 % (11.5-14.5)
[2016-08-09 17:44] LABS: BAND NEUTROPHILS % (MANUAL) 10 % (1-5); EOSINOPHILS % (MANUAL) 1 % (1-6); LYMPHOCYTES % (MANUAL) 19 % (22-44); TOTAL CELLS COUNTED 100
[2016-08-09] MEDS: VANCOMYCIN HCL 125 MG/2.5 ML SOLUTION ORAL.SYG PO SCH ×2 (18:04→23:29)
[2016-08-09] MEDS ORDERED: POTASSIUM CHLORIDE 10% 40 MEQ/30 ML LIQUID UDCUP PO ONE (18:30)
[2016-08-09 19:47] LABS: GLUCOSE COMMENT 1 Received Meds; GLUCOSE,POINT OF CARE 186 MG/DL (70-110)
[2016-08-09 19:52] LABS: GLUCOSE COMMENT 1 Received Meds; GLUCOSE,POINT OF CARE 260 MG/DL (70-110)
[2016-08-09] MEDS: TraZODone HCL 50 MG TABLET PO SCH (20:02)
[2016-08-09 20:09] VITALS: BP 115/69
[2016-08-10] VITALS (7 sets, daily range): BP systolic 103–126; BP diastolic 65–83
[2016-08-10 01:52] LABS: GLUCOSE COMMENT 1 Received Meds; GLUCOSE,POINT OF CARE 266 MG/DL (70-110)
[2016-08-10] MEDS: VANCOMYCIN HCL 125 MG/2.5 ML SOLUTION ORAL.SYG PO SCH ×3 (06:06→17:05)
[2016-08-10] MEDS: INSULIN ASPART 100 UNITS/ML SQ PRN ×3 (06:10→17:23)
[2016-08-10 07:11] LABS: HEMATOCRIT 27.7 % (41-53); HEMOGLOBIN 9.2 g/dL (13.5-17.5); MEAN CORPUSCULAR HEMOGLOBIN 26.1 pg (26.0-34.0); MEAN CORPUSCULAR HGB CONC 33.1 G/dL (31.0-37.0); MEAN CORPUSCULAR VOLUME 79 fL (80-100); PLATELET COUNT (AUTO) 518 K/uL (150-450); RED BLOOD CELL COUNT(AUTO) 3.51 MIL/uL (4.50-5.90); RED CELL DISTRIBUTION WIDTH 22.2 % (11.5-14.5); WHITE BLOOD COUNT (AUTO) 20.4 K/uL (4.5-11.0)
[2016-08-10 07:19] LABS: CALCIUM, TOTAL 8.7 mg/dL (8.8-10.5); CREATININE 3.73 mg/dL (0.60-1.30); POTASSIUM 4.1 mmol/L (3.5-5.1)
[2016-08-10] MEDS: FERROUS SULFATE 325 MG EC TABLET PO SCH (08:00)
[2016-08-10] MEDS: TAMSULOSIN HCL 0.4 MG CAPSULE PO SCH (09:00)
[2016-08-10] MEDS: GABAPENTIN 100 MG CAPSULE PO SCH ×3 (09:00→20:58)
[2016-08-10] MEDS: PROPRANOLOL HCL 10 MG TABLET PO SCH (09:00)
[2016-08-10] MEDS: ASCORBIC ACID 500 MG TABLET PO SCH ×2 (09:00→20:58)
[2016-08-10] MEDS: ASPIRIN 325 MG EC TABLET PO SCH (09:00)
[2016-08-10] MEDS: MULTIVITAMINS, THERAPEUTIC TABLET PO SCH (09:00)
[2016-08-10] MEDS: DOCUSATE SODIUM 100 MG CAPSULE PO SCH ×2 (09:00→21:00)
[2016-08-10 09:29] LABS: BAND NEUTROPHILS % (MANUAL) 12 % (1-5); EOSINOPHILS % (MANUAL) 1 % (1-6); LYMPHOCYTES % (MANUAL) 18 % (22-44); TOTAL CELLS COUNTED 100
[2016-08-10 09:30] LABS: RBC MORPHOLOGY COMMENT ABNORMAL R
[2016-08-10] MEDS: MetroNIDAZOLE 500 MG/NACL 100 ML IV SCH ×3 (10:09→23:59)
[2016-08-10] MEDS: PANTOPRAZOLE SODIUM 40 MG/VIAL IVP SCH (10:09)
[2016-08-10] MEDS: HEPARIN SODIUM,PORCINE 5,000 UNITS/ML VIAL SQ SCH ×3 (10:53→23:59)
[2016-08-10] MEDS ORDERED: SODIUM CHLORIDE 0.45% 1,000 ML IV SCH (11:00)
[2016-08-10 11:47] LABS: GLUCOSE COMMENT 1 Received Meds; GLUCOSE,POINT OF CARE 258 MG/DL (70-110)
[2016-08-10 13:23] LABS: GLUCOSE,POINT OF CARE 280 MG/DL (70-110)
[2016-08-10] MEDS ORDERED: 0.9% SODIUM CHLORIDE 10 ML SYRINGE IVP PRN (14:30)
[2016-08-10] MEDS ORDERED: SODIUM BICARBONATE 100 MEQ in DEXTROSE 5%-WATER 1,000 ML IV SCH (18:10)
[2016-08-10] MEDS: TraZODone HCL 50 MG TABLET PO SCH (20:58)
[2016-08-10] MEDS: ACETAMINOPHEN 325 MG TABLET PO PRN (20:58)
[2016-08-10] MEDS ORDERED: DEXTROSE 50%-WATER 25 GM/50 ML SYRINGE IVP PRN (21:45)
[2016-08-10] MEDS: VANCOMYCIN HCL 125 MG/2.5 ML SOLUTION ORAL.SYG NG SCH (23:59)
[2016-08-11] VITALS (7 sets, daily range): BP systolic 97–128; BP diastolic 56–71
[2016-08-11] MEDS: INSULIN REGULAR, HUMAN 100 UNITS/ML SQ PRN ×5 (00:20→21:55)
[2016-08-11] MEDS: VANCOMYCIN HCL 125 MG/2.5 ML SOLUTION ORAL.SYG NG SCH ×3 (05:23→17:59)
[2016-08-11 06:20] LABS: HEMATOCRIT 25.1 % (41-53); HEMOGLOBIN 7.9 g/dL (13.5-17.5); MEAN CORPUSCULAR HEMOGLOBIN 25.3 pg (26.0-34.0); MEAN CORPUSCULAR HGB CONC 31.5 G/dL (31.0-37.0); MEAN CORPUSCULAR VOLUME 80 fL (80-100); PLATELET COUNT (AUTO) 531 K/uL (150-450); RED BLOOD CELL COUNT(AUTO) 3.13 MIL/uL (4.50-5.90); RED CELL DISTRIBUTION WIDTH 20.9 % (11.5-14.5); WHITE BLOOD COUNT (AUTO) 22.1 K/uL (4.5-11.0)
[2016-08-11 06:45] LABS: CALCIUM, TOTAL 7.9 mg/dL (8.8-10.5); CREATININE 4.05 mg/dL (0.60-1.30); MAGNESIUM 2.3 mg/dL (1.80-2.40); PHOSPHORUS 2.9 mg/dL (2.5-4.9); POTASSIUM 3.2 mmol/L (3.5-5.1)
[2016-08-11 07:32] LABS: GLUCOSE,POINT OF CARE 310 MG/DL (70-110)
[2016-08-11 08:14] LABS: GLUCOSE, URINE (UA) NEGATIVE (NEGATIVE); KETONES,URINE TRACE mg/dL (NEGATIVE); LEUKOCYTE ESTERASE ,URINE SMALL (NEGATIVE); OCCULT BLOOD,URINE NEGATIVE (NEGATIVE); PROTEIN,URINE POS 1+ (NEGATIVE)
[2016-08-11] MEDS ORDERED: ALBUMIN HUMAN 5%-12.5GM/250ML 250 ML IV ONE (08:30)
[2016-08-11 08:31] LABS: APPEARANCE,URINE HAZY (CLEAR)
[2016-08-11 08:36] LABS: RBC,URINE 0-2 /HPF (0-2); SQUAMOUS EPITHELIAL CELL,UR Few /LPF (None Seen)
[2016-08-11 08:53] LABS: BAND NEUTROPHILS % (MANUAL) 26 % (1-5); LYMPHOCYTES % (MANUAL) 22 % (22-44); TOTAL CELLS COUNTED 100
[2016-08-11] MEDS ORDERED: MULTIVITAMINS, THERAPEUTIC 15 ML UDCUP NG SCH ×3 (09:00→09:11)
[2016-08-11] MEDS: PROPRANOLOL HCL 10 MG TABLET NG SCH (09:00)
[2016-08-11] MEDS: ASPIRIN 325 MG EC TABLET NG SCH (09:00)
[2016-08-11] MEDS: DOCUSATE SODIUM 100 MG CAPSULE NG SCH ×2 (09:00→20:29)
[2016-08-11] MEDS: ALBUMIN HUMAN 25%-25GM/100ML 100 ML IV SCH ×3 (09:03→20:51)
[2016-08-11] MEDS: HEPARIN SODIUM,PORCINE 5,000 UNITS/ML VIAL SQ SCH ×2 (09:03→17:59)
[2016-08-11] MEDS: MetroNIDAZOLE 500 MG/NACL 100 ML IV SCH ×3 (09:03→22:53)
[2016-08-11] MEDS: PANTOPRAZOLE SODIUM 40 MG/VIAL IVP SCH (09:04)
[2016-08-11 09:05] LABS: RBC MORPHOLOGY COMMENT ABNORMAL RBC MORPH
[2016-08-11] MEDS: TAMSULOSIN HCL 0.4 MG CAPSULE NG SCH (09:05)
[2016-08-11] MEDS: ASCORBIC ACID 500 MG TABLET NG SCH ×2 (09:05→20:30)
[2016-08-11] MEDS ORDERED: SODIUM CHLORIDE 0.9% 250 ML IV ONE (09:08)
[2016-08-11] MEDS ORDERED: POTASSIUM CHL 10 MEQ/WATER 50 ML IV ONE (09:15)
[2016-08-11] MEDS ORDERED: POTASSIUM CHLORIDE 10 MEQ ER TABLET PO ONE (10:00)
[2016-08-11] MEDS: MULTIVITAMINS, THERAPEUTIC 15 ML UDCUP NG SCH (11:01)
[2016-08-11] MEDS: GABAPENTIN 100 MG CAPSULE NG SCH ×3 (11:02→20:31)
[2016-08-11] MEDS: SODIUM CHLORIDE IV SCH ×2 (11:09→22:53)
[2016-08-11] MEDS: [UNRECOGNIZED DRUG - OTHER] IV SCH ×2 (11:09→22:53)
[2016-08-11] MEDS: SODIUM BICARBONATE IV SCH ×2 (11:09→22:53)
[2016-08-11] MEDS ORDERED: 0.9% SODIUM CHLORIDE 10 ML SYRINGE IVP PRN (12:45)
[2016-08-11] MEDS: FERROUS SULFATE 300 MG/5 ML LIQUID UDCUP NG SCH (12:57)
[2016-08-11 14:09] LABS: CALCIUM, TOTAL 7.7 mg/dL (8.8-10.5); CREATININE 3.82 mg/dL (0.60-1.30); MAGNESIUM 2.2 mg/dL (1.80-2.40); PHOSPHORUS 2.8 mg/dL (2.5-4.9)
[2016-08-11 14:13] LABS: POTASSIUM 2.8 mmol/L (3.5-5.1)
[2016-08-11] MEDS ORDERED: POTASSIUM CHLORIDE 10% 40 MEQ/30 ML LIQUID UDCUP NG ONE (14:30)
[2016-08-11] MEDS: POTASSIUM CHL 10 MEQ/WATER 50 ML IV SCH ×2 (14:57→16:09)
[2016-08-11 18:37] LABS: CALCIUM, TOTAL 7.4 mg/dL (8.8-10.5); CREATININE 3.64 mg/dL (0.60-1.30); POTASSIUM 3.8 mmol/L (3.5-5.1)
[2016-08-11] MEDS ORDERED: BARIUM SULFATE 0.1% SUSPENSION 450 ML BOTTLE ONE (21:27)
[2016-08-11] MEDS: TraZODone HCL 50 MG TABLET NG SCH (22:57)
[2016-08-12] VITALS (22 sets, daily range): BP systolic 87–134; BP diastolic 27–109
[2016-08-12] MEDS: VANCOMYCIN HCL 125 MG/2.5 ML SOLUTION ORAL.SYG NG SCH ×4 (02:36→18:47)
[2016-08-12] MEDS: ALBUMIN HUMAN 25%-25GM/100ML 100 ML IV SCH ×4 (02:37→20:35)
[2016-08-12] MEDS: HEPARIN SODIUM,PORCINE 5,000 UNITS/ML VIAL SQ SCH ×3 (02:41→16:18)
[2016-08-12 02:51] LABS: GLUCOSE COMMENT 1 Received Meds; GLUCOSE,POINT OF CARE 375 MG/DL (70-110)
[2016-08-12 03:16] LABS: GLUCOSE COMMENT 1 Doctor Notified; GLUCOSE,POINT OF CARE 379 MG/DL (70-110)
[2016-08-12] MEDS: ACETAMINOPHEN 650 MG/20.3 ML SOLUTION UDCUP NG PRN ×2 (04:47→12:42)
[2016-08-12 06:15] LABS: EOSINOPHILS # (AUTO) 1.09 K/uL (0.00-0.70); EOSINOPHILS % (AUTO) 6.34 % (1.0-6.0); LYMPHOCYTES # (AUTO) 2.5 K/uL (1.0-4.8); LYMPHOCYTES % (AUTO) 14.6 % (22.0-44.0); MEAN CORPUSCULAR HEMOGLOBIN 25.8 pg (26.0-34.0); MEAN CORPUSCULAR HGB CONC 33.1 G/dL (31.0-37.0); MEAN CORPUSCULAR VOLUME 78 fL (80-100); MONOCYTES # (AUTO) 0.5 K/uL (0.1-1.0); MONOCYTES % (AUTO) 2.9 % (2.0-9.0); NEUTROPHILS # (AUTO) 13.1 K/uL (1.8-7.7); NEUTROPHILS % (AUTO) 76.2 % (40.0-70.0); PLATELET COUNT (AUTO) 360 K/uL (150-450); RED BLOOD CELL COUNT(AUTO) 2.49 MIL/uL (4.50-5.90); RED CELL DISTRIBUTION WIDTH 20.6 % (11.5-14.5); WHITE BLOOD COUNT (AUTO) 17.2 K/uL (4.5-11.0)
[2016-08-12] MEDS: MetroNIDAZOLE 500 MG/NACL 100 ML IV SCH ×2 (06:17→16:18)
[2016-08-12 06:18] LABS: CALCIUM, TOTAL 7.2 mg/dL (8.8-10.5); CREATININE 3.05 mg/dL (0.60-1.30); MAGNESIUM 1.7 mg/dL (1.80-2.40)
[2016-08-12] MEDS: INSULIN REGULAR, HUMAN 100 UNITS/ML SQ PRN ×3 (06:22→17:55)
[2016-08-12 07:09] LABS: HEMATOCRIT 19.4 % (41-53); HEMOGLOBIN 6.4 g/dL (13.5-17.5)
[2016-08-12 07:38] LABS: PHOSPHORUS 1.4 mg/dL (2.5-4.9)
[2016-08-12] MEDS ORDERED: POTASSIUM PHOS,M-BASIC-D-BASIC 20 MEQ in DEXTROSE 5%-WATER 100 ML IV ONE ×2 (08:00→19:45)
[2016-08-12 08:46] LABS: RBC MORPHOLOGY COMMENT ABNORMAL RBC MORPH
[2016-08-12] MEDS: PROPRANOLOL HCL 10 MG TABLET NG SCH (09:00)
[2016-08-12] MEDS: DOCUSATE SODIUM 100 MG CAPSULE NG SCH ×3 (09:00→20:32)
[2016-08-12] MEDS: ASPIRIN 325 MG EC TABLET NG SCH (09:01)
[2016-08-12] MEDS: GABAPENTIN 100 MG CAPSULE NG SCH ×3 (09:02→20:33)
[2016-08-12] MEDS: MULTIVITAMINS, THERAPEUTIC 15 ML UDCUP NG SCH (09:02)
[2016-08-12] MEDS: PANTOPRAZOLE SODIUM 40 MG/VIAL IVP SCH (09:03)
[2016-08-12] MEDS: ASCORBIC ACID 500 MG TABLET NG SCH ×2 (09:03→20:32)
[2016-08-12] MEDS: FERROUS SULFATE 300 MG/5 ML LIQUID UDCUP NG SCH (09:03)
[2016-08-12] MEDS: TAMSULOSIN HCL 0.4 MG CAPSULE NG SCH (09:03)
[2016-08-12] MEDS ORDERED: SODIUM CHLORIDE 0.9% 100 ML ONE ×2 (09:11→15:43)
[2016-08-12] MEDS ORDERED: SODIUM CHLORIDE 0.9% 250 ML IV ONE (09:11)
[2016-08-12] MEDS: SODIUM CHLORIDE IV SCH ×2 (09:21→20:35)
[2016-08-12] MEDS: SODIUM BICARBONATE IV SCH ×2 (09:21→20:35)
[2016-08-12] MEDS: [UNRECOGNIZED DRUG - OTHER] IV SCH ×2 (09:21→20:35)
[2016-08-12 19:11] LABS: BASOPHILS % (AUTO) 1.5 % (0.0-2.0); EOSINOPHILS % (AUTO) 6.4 % (1.0-6.0); HEMOGLOBIN 9.3 g/dL (13.5-17.5); LYMPHOCYTES # (AUTO) 2.4 K/uL (1.0-4.8); LYMPHOCYTES % (AUTO) 14.7 % (22.0-44.0); MEAN CORPUSCULAR HEMOGLOBIN 26.3 pg (26.0-34.0); MEAN CORPUSCULAR HGB CONC 32.1 G/dL (31.0-37.0); MEAN CORPUSCULAR VOLUME 82 fL (80-100); MONOCYTES # (AUTO) 0.8 K/uL (0.1-1.0); MONOCYTES % (AUTO) 5.1 % (2.0-9.0); NEUTROPHILS % (AUTO) 72.3 % (40.0-70.0); PLATELET COUNT (AUTO) 344 K/uL (150-450); RED BLOOD CELL COUNT(AUTO) 3.53 MIL/uL (4.50-5.90); RED CELL DISTRIBUTION WIDTH 20.3 % (11.5-14.5); WHITE BLOOD COUNT (AUTO) 16.6 K/uL (4.5-11.0)
[2016-08-12 19:25] LABS: CALCIUM, TOTAL 6.6 mg/dL (8.8-10.5); CREATININE 2.6 mg/dL (0.60-1.30)
[2016-08-12 19:32] LABS: POTASSIUM 2.7 mmol/L (3.5-5.1)
[2016-08-12 19:37] LABS: RBC MORPHOLOGY COMMENT ABNORMAL RBC MORPH
[2016-08-12] MEDS ORDERED: POTASSIUM CHLORIDE 10% 40 MEQ/30 ML LIQUID UDCUP NG ONE (19:45)
[2016-08-12 20:07] LABS: GLUCOSE COMMENT 1 Received Meds; GLUCOSE,POINT OF CARE 377 MG/DL (70-110)
[2016-08-12 20:07] LABS: GLUCOSE COMMENT 1 Received Meds; GLUCOSE,POINT OF CARE 396 MG/DL (70-110)
[2016-08-12 20:07] LABS: GLUCOSE COMMENT 1 Received Meds; GLUCOSE,POINT OF CARE 346 MG/DL (70-110)
[2016-08-12 20:12] LABS: GLUCOSE COMMENT 1 Received Meds; GLUCOSE,POINT OF CARE 384 MG/DL (70-110)
[2016-08-12] MEDS: TraZODone HCL 50 MG TABLET NG SCH (20:32)
[2016-08-12 20:42] LABS: GLUCOSE COMMENT 1 Received Meds; GLUCOSE,POINT OF CARE 351 MG/DL (70-110)
[2016-08-12 20:43] LABS: GLUCOSE COMMENT 1 Received Meds; GLUCOSE,POINT OF CARE 301 MG/DL (70-110)
[2016-08-12 20:47] LABS: GLUCOSE COMMENT 1 Received Meds; GLUCOSE,POINT OF CARE 311 MG/DL (70-110)
[2016-08-13] MEDS: VANCOMYCIN HCL 125 MG/2.5 ML SOLUTION ORAL.SYG NG SCH ×4 (01:15→17:01)
[2016-08-13] MEDS: MetroNIDAZOLE 500 MG/NACL 100 ML IV SCH ×3 (01:15→16:54)
[2016-08-13] MEDS: HEPARIN SODIUM,PORCINE 5,000 UNITS/ML VIAL SQ SCH ×3 (01:15→16:55)
[2016-08-13] MEDS: INSULIN REGULAR, HUMAN 100 UNITS/ML SQ PRN ×4 (01:16→17:40)
[2016-08-13 02:03] LABS: CALCIUM, TOTAL 6.8 mg/dL (8.8-10.5); CREATININE 2.37 mg/dL (0.60-1.30); POTASSIUM 3.6 mmol/L (3.5-5.1)
[2016-08-13] MEDS: ALBUMIN HUMAN 25%-25GM/100ML 100 ML IV SCH ×4 (02:23→19:55)
[2016-08-13 04:16] VITALS: BP 108/55
[2016-08-13 04:32] LABS: GLUCOSE COMMENT 1 Received Meds; GLUCOSE,POINT OF CARE 327 MG/DL (70-110)
[2016-08-13 06:02] LABS: BASOPHILS % (AUTO) 0.3 % (0.0-2.0); EOSINOPHILS % (AUTO) 4.8 % (1.0-6.0); HEMATOCRIT 28.5 % (41-53); HEMOGLOBIN 9.2 g/dL (13.5-17.5); LYMPHOCYTES # (AUTO) 2.7 K/uL (1.0-4.8); LYMPHOCYTES % (AUTO) 15.2 % (22.0-44.0); MEAN CORPUSCULAR HEMOGLOBIN 26.3 pg (26.0-34.0); MEAN CORPUSCULAR HGB CONC 32.4 G/dL (31.0-37.0); MEAN CORPUSCULAR VOLUME 81 fL (80-100); MONOCYTES # (AUTO) 1.9 K/uL (0.1-1.0); MONOCYTES % (AUTO) 10.4 % (2.0-9.0); NEUTROPHILS # (AUTO) 12.5 K/uL (1.8-7.7); NEUTROPHILS % (AUTO) 69.3 % (40.0-70.0); PLATELET COUNT (AUTO) 335 K/uL (150-450); RED BLOOD CELL COUNT(AUTO) 3.51 MIL/uL (4.50-5.90); RED CELL DISTRIBUTION WIDTH 20.1 % (11.5-14.5)
[2016-08-13] MEDS: SODIUM CHLORIDE IV SCH ×2 (06:18→16:54)
[2016-08-13] MEDS: SODIUM BICARBONATE IV SCH ×2 (06:18→16:54)
[2016-08-13] MEDS: [UNRECOGNIZED DRUG - OTHER] IV SCH ×2 (06:18→16:54)
[2016-08-13 06:54] LABS: CREATININE 2.29 mg/dL (0.60-1.30); MAGNESIUM 1.5 mg/dL (1.80-2.40); PHOSPHORUS 2.2 mg/dL (2.5-4.9)
[2016-08-13] MEDS ORDERED: POTASSIUM PHOS,M-BASIC-D-BASIC 20 MEQ in DEXTROSE 5%-WATER 100 ML IV ONE (07:30)
[2016-08-13 07:31] VITALS: BP 149/73
[2016-08-13] MEDS ORDERED: MAGNESIUM SULFATE 3 GM in DEXTROSE 5%-WATER 100 ML IV ONE (08:15)
[2016-08-13] MEDS ORDERED: POTASSIUM CHLORIDE 20 MEQ ER TABLET PO ONE (08:15)
[2016-08-13] MEDS: PANTOPRAZOLE SODIUM 40 MG/VIAL IVP SCH (08:59)
[2016-08-13] MEDS: FERROUS SULFATE 300 MG/5 ML LIQUID UDCUP NG SCH (09:00)
[2016-08-13] MEDS: PROPRANOLOL HCL 10 MG TABLET NG SCH ×2 (09:00→19:55)
[2016-08-13] MEDS: ASCORBIC ACID 500 MG TABLET NG SCH ×2 (09:00→19:55)
[2016-08-13] MEDS: TAMSULOSIN HCL 0.4 MG CAPSULE NG SCH (09:01)
[2016-08-13] MEDS: ASPIRIN 325 MG EC TABLET NG SCH (09:01)
[2016-08-13] MEDS: GABAPENTIN 100 MG CAPSULE NG SCH ×3 (09:01→22:17)
[2016-08-13 10:04] LABS: RBC MORPHOLOGY COMMENT ABNORMAL RBC MORPH
[2016-08-13] MEDS: POTASSIUM PHOS/SODIUM PHOS MIXTURE 1 POWDER PACKET PO SCH ×2 (10:42→19:54)
[2016-08-13] MEDS: MULTIVITAMINS, THERAPEUTIC 15 ML UDCUP NG SCH (10:42)
[2016-08-13] MEDS ORDERED: SODIUM CHLORIDE 0.9% 100 ML ONE ×2 (11:05→12:44)
[2016-08-13 12:07] LABS: GLUCOSE,POINT OF CARE 321 MG/DL (70-110)
[2016-08-13 12:25] VITALS: BP 119/79
[2016-08-13] MEDS: POTASSIUM CHL 10 MEQ/WATER 50 ML IV SCH ×2 (13:08→15:08)
[2016-08-13] MEDS: ACETAMINOPHEN 650 MG/20.3 ML SOLUTION UDCUP NG PRN (15:07)
[2016-08-13 15:38] VITALS: BP 146/81
[2016-08-13 17:52] LABS: GLUCOSE COMMENT 1 Doctor Notified; GLUCOSE,POINT OF CARE 400 MG/DL (70-110)
[2016-08-13 18:13] LABS: INR 1.5 (0.9-1.1); PROTHROMBIN TIME 16.1 SEC (9.4-11.6)
[2016-08-13 18:24] LABS: CALCIUM, TOTAL 6.6 mg/dL (8.8-10.5); CREATININE 1.92 mg/dL (0.60-1.30); MAGNESIUM 2.4 mg/dL (1.80-2.40); PHOSPHORUS 2.9 mg/dL (2.5-4.9); POTASSIUM 3.1 mmol/L (3.5-5.1)
[2016-08-13 19:11] LABS: GLUCOSE COMMENT 1 Received Meds; GLUCOSE,POINT OF CARE 290 MG/DL (70-110)
[2016-08-13 19:16] LABS: GLUCOSE COMMENT 1 Received Meds; GLUCOSE,POINT OF CARE 338 MG/DL (70-110)
[2016-08-13 19:40] VITALS: BP 142/71
[2016-08-13] MEDS: TraZODone HCL 50 MG TABLET NG SCH (19:55)
[2016-08-13] MEDS: DOCUSATE SODIUM 100 MG CAPSULE NG SCH (19:56)
[2016-08-13] MEDS ORDERED: POTASSIUM CHLORIDE 10% 40 MEQ/30 ML LIQUID UDCUP NG ONE (21:00)
[2016-08-13 23:48] VITALS: BP 122/70
[2016-08-14] MEDS: HEPARIN SODIUM,PORCINE 5,000 UNITS/ML VIAL SQ SCH ×3 (00:22→16:29)
[2016-08-14] MEDS: VANCOMYCIN HCL 125 MG/2.5 ML SOLUTION ORAL.SYG NG SCH ×4 (00:22→17:56)
[2016-08-14] MEDS: MetroNIDAZOLE 500 MG/NACL 100 ML IV SCH ×3 (00:22→16:29)
[2016-08-14] MEDS: ACETAMINOPHEN 650 MG/20.3 ML SOLUTION UDCUP NG PRN (00:23)
[2016-08-14] MEDS: SODIUM BICARBONATE IV SCH (02:43)
[2016-08-14] MEDS: ALBUMIN HUMAN 25%-25GM/100ML 100 ML IV SCH ×4 (02:43→20:43)
[2016-08-14] MEDS: [UNRECOGNIZED DRUG - OTHER] IV SCH (02:43)
[2016-08-14] MEDS: SODIUM CHLORIDE IV SCH (02:43)
[2016-08-14 04:49] VITALS: BP 129/67
[2016-08-14 06:09] LABS: BASOPHILS # (AUTO) 0.06 K/uL (0.00-0.20); BASOPHILS % (AUTO) 0.4 % (0.0-2.0); EOSINOPHILS # (AUTO) 0.58 K/uL (0.00-0.70); EOSINOPHILS % (AUTO) 4.09 % (1.0-6.0); HEMATOCRIT 29.7 % (41-53); HEMOGLOBIN 9.7 g/dL (13.5-17.5); LYMPHOCYTES # (AUTO) 2.2 K/uL (1.0-4.8); LYMPHOCYTES % (AUTO) 15.4 % (22.0-44.0); MEAN CORPUSCULAR HEMOGLOBIN 26.7 pg (26.0-34.0); MEAN CORPUSCULAR HGB CONC 32.7 G/dL (31.0-37.0); MEAN CORPUSCULAR VOLUME 82 fL (80-100); MONOCYTES # (AUTO) 1.6 K/uL (0.1-1.0); MONOCYTES % (AUTO) 11.1 % (2.0-9.0); NEUTROPHILS # (AUTO) 9.8 K/uL (1.8-7.7); PLATELET COUNT (AUTO) 300 K/uL (150-450); RED BLOOD CELL COUNT(AUTO) 3.63 MIL/uL (4.50-5.90); RED CELL DISTRIBUTION WIDTH 20.5 % (11.5-14.5); WHITE BLOOD COUNT (AUTO) 14.2 K/uL (4.5-11.0)
[2016-08-14] MEDS ORDERED: SODIUM CL IRRIG SOLN BAG 3,000 ML IRRIG ONE (06:42)
[2016-08-14 06:52] LABS: ALBUMIN 3.6 g/dL (3.4-5.0); BILIRUBIN,TOTAL 0.6 mg/dL (0.1-1.0); CREATININE 1.64 mg/dL (0.60-1.30); MAGNESIUM 2.1 mg/dL (1.80-2.40); PHOSPHORUS 2.6 mg/dL (2.5-4.9); POTASSIUM 3.5 mmol/L (3.5-5.1); TOTAL PROTEIN, SERUM 5.8 g/dL (6.4-8.2)
[2016-08-14 07:45] VITALS: BP 139/74
[2016-08-14] MEDS ORDERED: SODIUM CHLORIDE 0.9% 1,000 ML IV ONE (08:30)
[2016-08-14] MEDS: PANTOPRAZOLE SODIUM 40 MG/VIAL IVP SCH (08:30)
[2016-08-14] MEDS: DOCUSATE SODIUM 100 MG CAPSULE NG SCH ×2 (08:48→20:43)
[2016-08-14 09:06] LABS: RBC MORPHOLOGY COMMENT ABNORMAL RBC MORPH
[2016-08-14] MEDS ORDERED: MEPERIDINE-PF 25 MG/ML SYRINGE IVP PRN (09:30)
[2016-08-14] MEDS ORDERED: FentaNYL CITRATE-PF 100 MCG/2 ML VIAL IVP PRN (09:30)
[2016-08-14] MEDS ORDERED: HYDROmorphone 2 MG/ML SYRINGE IVP PRN (09:30)
[2016-08-14] MEDS ORDERED: OXYGEN THERAPY IH SCH (09:30)
[2016-08-14] MEDS ORDERED: RINGERS SOLUTION,LACTATED 1,000 ML IV ONE (09:50)
[2016-08-14] MEDS: LIDOCAINE HCL/PF 1% 30 ML VIAL ONE ×2 (09:55→10:23)
[2016-08-14] MEDS: BUPIVACAINE HCL/PF 0.5% 30 ML VIAL ONE ×2 (09:55→10:22)
[2016-08-14] MEDS ORDERED: POTASSIUM CHLORIDE 10 MEQ ER TABLET PO ONE (10:00)
[2016-08-14] MEDS ORDERED: SODIUM CHLORIDE 0.9% 10 ML ONE (10:10)
[2016-08-14] MEDS ORDERED: BACITRACIN 50,000 UNITS/VIAL ONE (10:10)
[2016-08-14 10:56] VITALS: BP 147/75
[2016-08-14] MEDS: OxyCODONE HCL/ACETAMINOPHEN 5-325 MG TABLET PO PRN ×2 (11:15→17:57)
[2016-08-14] MEDS: ASPIRIN 81 MG EC TABLET NG SCH (11:29)
[2016-08-14] MEDS: FERROUS SULFATE 300 MG/5 ML LIQUID UDCUP NG SCH (11:29)
[2016-08-14] MEDS: TAMSULOSIN HCL 0.4 MG CAPSULE NG SCH (11:29)
[2016-08-14 11:31] LABS: GLUCOSE COMMENT 1 Received Meds; GLUCOSE,POINT OF CARE 360 MG/DL (70-110)
[2016-08-14] MEDS: PROPRANOLOL HCL 10 MG TABLET NG SCH ×2 (11:31→20:43)
[2016-08-14] MEDS: MULTIVITAMINS, THERAPEUTIC 15 ML UDCUP NG SCH (11:31)
[2016-08-14] MEDS: GABAPENTIN 100 MG CAPSULE NG SCH ×3 (11:32→20:44)
[2016-08-14] MEDS: ASCORBIC ACID 500 MG TABLET NG SCH ×2 (11:32→20:44)
[2016-08-14] MEDS: INSULIN REGULAR, HUMAN 100 UNITS/ML SQ PRN ×2 (12:35→18:10)
[2016-08-14] MEDS ORDERED: SODIUM CHLORIDE 0.45% 1,000 ML IV SCH (13:00)
[2016-08-14 15:35] VITALS: BP 145/74
[2016-08-14 19:49] VITALS: BP 139/69
[2016-08-14] MEDS: TraZODone HCL 50 MG TABLET NG SCH (20:43)
[2016-08-14 21:32] LABS: GLUCOSE COMMENT 1 Received Meds; GLUCOSE,POINT OF CARE 294 MG/DL (70-110)
[2016-08-14 21:32] LABS: GLUCOSE,POINT OF CARE 340 MG/DL (70-110)
[2016-08-15 00:03] VITALS: BP 158/62
[2016-08-15] MEDS: MetroNIDAZOLE 500 MG/NACL 100 ML IV SCH ×4 (00:42→23:12)
[2016-08-15] MEDS: HEPARIN SODIUM,PORCINE 5,000 UNITS/ML VIAL SQ SCH ×4 (00:43→23:11)
[2016-08-15] MEDS: VANCOMYCIN HCL 125 MG/2.5 ML SOLUTION ORAL.SYG NG SCH ×4 (00:43→18:25)
[2016-08-15] MEDS: MORPHINE SULFATE 2 MG/ML SYRINGE IVP PRN ×5 (01:00→23:12)
[2016-08-15] MEDS: ALBUMIN HUMAN 25%-25GM/100ML 100 ML IV SCH ×4 (02:25→20:12)
[2016-08-15] MEDS: INSULIN REGULAR, HUMAN 100 UNITS/ML SQ PRN ×4 (02:39→18:29)
[2016-08-15 04:31] VITALS: BP 140/75
[2016-08-15 06:43] LABS: BASOPHILS # (AUTO) 0.03 K/uL (0.00-0.20); BASOPHILS % (AUTO) 0.2 % (0.0-2.0); EOSINOPHILS # (AUTO) 0.55 K/uL (0.00-0.70); EOSINOPHILS % (AUTO) 4.04 % (1.0-6.0); HEMATOCRIT 29.4 % (41-53); HEMOGLOBIN 9.7 g/dL (13.5-17.5); LYMPHOCYTES # (AUTO) 2.4 K/uL (1.0-4.8); LYMPHOCYTES % (AUTO) 17.7 % (22.0-44.0); MEAN CORPUSCULAR HGB CONC 32.9 G/dL (31.0-37.0); MEAN CORPUSCULAR VOLUME 82 fL (80-100); MONOCYTES # (AUTO) 1.4 K/uL (0.1-1.0); MONOCYTES % (AUTO) 10.2 % (2.0-9.0); NEUTROPHILS # (AUTO) 9.3 K/uL (1.8-7.7); NEUTROPHILS % (AUTO) 67.9 % (40.0-70.0); PLATELET COUNT (AUTO) 301 K/uL (150-450); RED BLOOD CELL COUNT(AUTO) 3.59 MIL/uL (4.50-5.90); RED CELL DISTRIBUTION WIDTH 21.3 % (11.5-14.5); WHITE BLOOD COUNT (AUTO) 13.7 K/uL (4.5-11.0)
[2016-08-15 07:34] VITALS: BP 137/62
[2016-08-15 07:34] LABS: CALCIUM, TOTAL 7.4 mg/dL (8.8-10.5); CREATININE 1.35 mg/dL (0.60-1.30); MAGNESIUM 1.9 mg/dL (1.80-2.40)
[2016-08-15 07:50] LABS: POTASSIUM 2.7 mmol/L (3.5-5.1)
[2016-08-15] MEDS ORDERED: POTASSIUM CHLORIDE 10% 40 MEQ/30 ML LIQUID UDCUP NG ONE (08:00)
[2016-08-15] MEDS ORDERED: POTASSIUM PHOS/SODIUM PHOS MIXTURE 1 POWDER PACKET NG ONE (08:00)
[2016-08-15] MEDS: DOCUSATE SODIUM 100 MG CAPSULE NG SCH ×2 (08:04→20:15)
[2016-08-15] MEDS: ASPIRIN 81 MG EC TABLET NG SCH (08:56)
[2016-08-15] MEDS: POTASSIUM CHL 10 MEQ/WATER 50 ML IV SCH ×2 (08:56→10:15)
[2016-08-15] MEDS: PANTOPRAZOLE SODIUM 40 MG/VIAL IVP SCH (08:56)
[2016-08-15] MEDS: ASCORBIC ACID 500 MG TABLET NG SCH ×2 (08:57→20:10)
[2016-08-15] MEDS: TAMSULOSIN HCL 0.4 MG CAPSULE NG SCH (08:57)
[2016-08-15] MEDS: GABAPENTIN 100 MG CAPSULE NG SCH ×3 (08:57→20:10)
[2016-08-15] MEDS: FERROUS SULFATE 300 MG/5 ML LIQUID UDCUP NG SCH (08:57)
[2016-08-15] MEDS: MULTIVITAMINS, THERAPEUTIC 15 ML UDCUP NG SCH (08:57)
[2016-08-15] MEDS: PROPRANOLOL HCL 10 MG TABLET NG SCH ×2 (08:57→20:10)
[2016-08-15 09:17] LABS: RBC MORPHOLOGY COMMENT ABNORMAL RBC MORPH
[2016-08-15] MEDS: POTASSIUM CHLORIDE 20 MEQ in SODIUM CHLORIDE 0.45% 1,000 ML IV SCH (11:15)
[2016-08-15 11:31] VITALS: BP 138/73
[2016-08-15 14:51] LABS: CREATININE 1.18 mg/dL (0.60-1.30); MAGNESIUM 1.7 mg/dL (1.80-2.40); POTASSIUM 3.1 mmol/L (3.5-5.1)
[2016-08-15 15:03] LABS: PHOSPHORUS 1.2 mg/dL (2.5-4.9)
[2016-08-15] MEDS ORDERED: POTASSIUM PHOS,M-BASIC-D-BASIC 20 MEQ in DEXTROSE 5%-WATER 100 ML IV ONE (15:30)
[2016-08-15] MEDS ORDERED: MAGNESIUM SULFATE 2 GM in DEXTROSE 5%-WATER 50 ML IV ONE (15:30)
[2016-08-15 15:38] VITALS: BP 171/92
[2016-08-15] MEDS: AmLODIPine BESYLATE 5 MG TABLET PO SCH (18:24)
[2016-08-15 19:25] VITALS: BP 179/78
[2016-08-15] MEDS: TraZODone HCL 50 MG TABLET NG SCH (20:10)
[2016-08-15 20:31] LABS: CALCIUM, TOTAL 7.9 mg/dL (8.8-10.5); CREATININE 1.24 mg/dL (0.60-1.30); MAGNESIUM 2.3 mg/dL (1.80-2.40); PHOSPHORUS 2.4 mg/dL (2.5-4.9); POTASSIUM 3.6 mmol/L (3.5-5.1)
[2016-08-15] MEDS ORDERED: INSULIN REGULAR, HUMAN 100 UNITS/ML SQ ONE (22:00)
[2016-08-15] MEDS: VANCOMYCIN HCL 500 MG/10 ML SOLUTION ORAL.SYG NG SCH (23:14)
[2016-08-16] VITALS: BP 142/70
[2016-08-16] MEDS: INSULIN REGULAR, HUMAN 100 UNITS/ML SQ PRN ×4 (00:19→18:06)
[2016-08-16] MEDS: ALBUMIN HUMAN 25%-25GM/100ML 100 ML IV SCH (01:12)
[2016-08-16 04:07] VITALS: BP 122/59
[2016-08-16] MEDS: VANCOMYCIN HCL 500 MG/10 ML SOLUTION ORAL.SYG NG SCH ×3 (06:06→18:07)
[2016-08-16 06:47] LABS: BASOPHILS % (AUTO) 0.2 % (0.0-2.0); EOSINOPHILS % (AUTO) 2.8 % (1.0-6.0); HEMATOCRIT 27.5 % (41-53); HEMOGLOBIN 8.9 g/dL (13.5-17.5); LYMPHOCYTES # (AUTO) 2.2 K/uL (1.0-4.8); LYMPHOCYTES % (AUTO) 16.7 % (22.0-44.0); MEAN CORPUSCULAR HEMOGLOBIN 26.5 pg (26.0-34.0); MEAN CORPUSCULAR HGB CONC 32.3 G/dL (31.0-37.0); MEAN CORPUSCULAR VOLUME 82 fL (80-100); MONOCYTES # (AUTO) 1.6 K/uL (0.1-1.0); MONOCYTES % (AUTO) 12.6 % (2.0-9.0); NEUTROPHILS # (AUTO) 8.9 K/uL (1.8-7.7); NEUTROPHILS % (AUTO) 67.7 % (40.0-70.0); PLATELET COUNT (AUTO) 302 K/uL (150-450); RED BLOOD CELL COUNT(AUTO) 3.35 MIL/uL (4.50-5.90); RED CELL DISTRIBUTION WIDTH 21.3 % (11.5-14.5); WHITE BLOOD COUNT (AUTO) 13.1 K/uL (4.5-11.0)
[2016-08-16 06:49] LABS: ALANINE AMINOTRANSFERASE 8 U/L (12-78); ALBUMIN 3.8 g/dL (3.4-5.0); ANION GAP 12 mmol/L (8-16); ASPARTATE AMINOTRANSFERASE 7 U/L (15-37); BILIRUBIN,TOTAL 0.7 mg/dL (0.1-1.0); CALCIUM, TOTAL 7.9 mg/dL (8.8-10.5); CARBON DIOXIDE 24 mmol/L (22-29); CHLORIDE 110 mmol/L (98-107); CREATININE 1.14 mg/dL (0.60-1.30); GLOMERULAR FILTR. RATE CALC > 60 mL/min (>60); PHOSPHORUS 2.2 mg/dL (2.5-4.9); POTASSIUM 3.2 mmol/L (3.5-5.1); SODIUM SERUM 146 mmol/L (136-145); UREA NITROGEN, BLOOD 29 mg/dL (7-18)
[2016-08-16 07:20] VITALS: BP 126/70
[2016-08-16] MEDS ORDERED: POTASSIUM CHLORIDE 20 MEQ ER TABLET PO ONE (07:30)
[2016-08-16 07:57] LABS: GLUCOSE COMMENT 1 Received Meds; GLUCOSE,POINT OF CARE 340 MG/DL (70-110)
[2016-08-16] MEDS ORDERED: POTASSIUM PHOS,M-BASIC-D-BASIC 20 MEQ in DEXTROSE 5%-WATER 100 ML IV ONE (08:00)
[2016-08-16] MEDS: PANTOPRAZOLE SODIUM 40 MG/VIAL IVP SCH (08:32)
[2016-08-16] MEDS: TAMSULOSIN HCL 0.4 MG CAPSULE NG SCH (08:32)
[2016-08-16] MEDS: DOCUSATE SODIUM 100 MG CAPSULE NG SCH ×2 (08:32→20:11)
[2016-08-16] MEDS: ASPIRIN 81 MG EC TABLET NG SCH (08:32)
[2016-08-16] MEDS: AmLODIPine BESYLATE 5 MG TABLET PO SCH (08:32)
[2016-08-16] MEDS: PROPRANOLOL HCL 10 MG TABLET NG SCH ×2 (08:32→20:09)
[2016-08-16] MEDS: HEPARIN SODIUM,PORCINE 5,000 UNITS/ML VIAL SQ SCH ×2 (08:32→16:01)
[2016-08-16] MEDS: GABAPENTIN 100 MG CAPSULE NG SCH ×3 (08:33→20:09)
[2016-08-16] MEDS: ASCORBIC ACID 500 MG TABLET NG SCH ×2 (08:33→20:09)
[2016-08-16] MEDS: MULTIVITAMINS, THERAPEUTIC 15 ML UDCUP NG SCH (08:34)
[2016-08-16] MEDS: MetroNIDAZOLE 500 MG/NACL 100 ML IV SCH ×2 (08:34→16:01)
[2016-08-16] MEDS: FERROUS SULFATE 300 MG/5 ML LIQUID UDCUP NG SCH (08:34)
[2016-08-16 11:03] LABS: RBC MORPHOLOGY COMMENT ABNORMAL RBC MORPH
[2016-08-16 11:09] VITALS: BP 136/65
[2016-08-16 15:38] VITALS: BP 117/64
[2016-08-16 17:36] LABS: ANION GAP 13 mmol/L (8-16); CALCIUM, TOTAL 7.9 mg/dL (8.8-10.5); CARBON DIOXIDE 22 mmol/L (22-29); CHLORIDE 110 mmol/L (98-107); CREATININE 1.11 mg/dL (0.60-1.30); GLOMERULAR FILTR. RATE CALC > 60 mL/min (>60); PHOSPHORUS 2.9 mg/dL (2.5-4.9); POTASSIUM 3.4 mmol/L (3.5-5.1); SODIUM SERUM 145 mmol/L (136-145); UREA NITROGEN, BLOOD 28 mg/dL (7-18)
[2016-08-16] MEDS ORDERED: POTASSIUM CHLORIDE 10% 40 MEQ/30 ML LIQUID UDCUP NG ONE (18:15)
[2016-08-16 19:32] VITALS: BP 120/55
[2016-08-16] MEDS: TraZODone HCL 50 MG TABLET NG SCH (20:09)
[2016-08-16] MEDS: POTASSIUM CHLORIDE 20 MEQ in SODIUM CHLORIDE 0.45% 1,000 ML IV SCH (20:09)
[2016-08-16] MEDS: INSULIN DETEMIR 100 UNITS/ML SQ SCH (20:11)
[2016-08-17] VITALS: BP 150/71
[2016-08-17] MEDS: HEPARIN SODIUM,PORCINE 5,000 UNITS/ML VIAL SQ SCH ×3 (00:35→15:16)
[2016-08-17] MEDS: VANCOMYCIN HCL 500 MG/10 ML SOLUTION ORAL.SYG NG SCH ×4 (00:37→17:50)
[2016-08-17] MEDS: MetroNIDAZOLE 500 MG/NACL 100 ML IV SCH ×3 (00:42→15:17)
[2016-08-17] MEDS: INSULIN REGULAR, HUMAN 100 UNITS/ML SQ PRN ×4 (00:52→17:51)
[2016-08-17] MEDS: MORPHINE SULFATE 2 MG/ML SYRINGE IVP PRN ×3 (02:42→17:52)
[2016-08-17 04:07] VITALS: BP 128/63
[2016-08-17 07:36] VITALS: BP 121/67
[2016-08-17] MEDS: DOCUSATE SODIUM 100 MG CAPSULE NG SCH (07:47)
[2016-08-17 07:48] LABS: BASOPHILS % (AUTO) 0.5 % (0.0-2.0); EOSINOPHILS % (AUTO) 3.5 % (1.0-6.0); HEMATOCRIT 29.9 % (41-53); HEMOGLOBIN 9.5 g/dL (13.5-17.5); LYMPHOCYTES # (AUTO) 2.7 K/uL (1.0-4.8); LYMPHOCYTES % (AUTO) 20.6 % (22.0-44.0); MEAN CORPUSCULAR HEMOGLOBIN 26.2 pg (26.0-34.0); MEAN CORPUSCULAR HGB CONC 31.9 G/dL (31.0-37.0); MEAN CORPUSCULAR VOLUME 82 fL (80-100); MONOCYTES # (AUTO) 1.3 K/uL (0.1-1.0); MONOCYTES % (AUTO) 10.2 % (2.0-9.0); NEUTROPHILS # (AUTO) 8.4 K/uL (1.8-7.7); NEUTROPHILS % (AUTO) 65.2 % (40.0-70.0); PLATELET COUNT (AUTO) 344 K/uL (150-450); RED BLOOD CELL COUNT(AUTO) 3.64 MIL/uL (4.50-5.90); RED CELL DISTRIBUTION WIDTH 21.9 % (11.5-14.5)
[2016-08-17 08:05] LABS: ANION GAP 12 mmol/L (8-16); CALCIUM, TOTAL 8.1 mg/dL (8.8-10.5); CARBON DIOXIDE 22 mmol/L (22-29); CHLORIDE 111 mmol/L (98-107); CREATININE 1.13 mg/dL (0.60-1.30); GLOMERULAR FILTR. RATE CALC > 60 mL/min (>60); PHOSPHORUS 2.5 mg/dL (2.5-4.9); POTASSIUM 3.4 mmol/L (3.5-5.1); SODIUM SERUM 145 mmol/L (136-145); UREA NITROGEN, BLOOD 29 mg/dL (7-18)
[2016-08-17 08:06] LABS: RBC MORPHOLOGY COMMENT ABNORMAL RBC MORPH
[2016-08-17] MEDS ORDERED: POTASSIUM CHLORIDE 10% 40 MEQ/30 ML LIQUID UDCUP NG ONE (08:30)
[2016-08-17] MEDS: FERROUS SULFATE 300 MG/5 ML LIQUID UDCUP NG SCH (08:47)
[2016-08-17] MEDS: PANTOPRAZOLE SODIUM 40 MG/VIAL IVP SCH (08:47)
[2016-08-17] MEDS: GABAPENTIN 100 MG CAPSULE NG SCH ×2 (08:48→15:16)
[2016-08-17] MEDS: TAMSULOSIN HCL 0.4 MG CAPSULE NG SCH (08:48)
[2016-08-17] MEDS: AmLODIPine BESYLATE 5 MG TABLET PO SCH (08:48)
[2016-08-17] MEDS: ASCORBIC ACID 500 MG TABLET NG SCH (08:48)
[2016-08-17] MEDS: ASPIRIN 81 MG EC TABLET NG SCH (08:48)
[2016-08-17] MEDS: MULTIVITAMINS, THERAPEUTIC 15 ML UDCUP NG SCH (08:48)
[2016-08-17] MEDS: INSULIN DETEMIR 100 UNITS/ML SQ SCH (08:50)
[2016-08-17] MEDS ORDERED: METOPROLOL TARTRATE 25 MG TABLET NG SCH (09:00)
[2016-08-17 11:38] VITALS: BP 103/59
[2016-08-17 16:03] VITALS: BP 127/68
[2016-08-17 17:52] VITALS: BP 123/72
[2016-08-20 17:37] LABS: GLUCOSE COMMENT 1 Received Meds; GLUCOSE,POINT OF CARE 337 MG/DL (70-110)
[2016-08-20 17:37] LABS: GLUCOSE COMMENT 1 Received Meds; GLUCOSE,POINT OF CARE 311 MG/DL (70-110)
[2016-08-22 18:18] LABS: GLUCOSE COMMENT 1 Received Meds; GLUCOSE,POINT OF CARE 354 MG/DL (70-110)
[2016-08-22 18:18] LABS: GLUCOSE COMMENT 1 Received Meds; GLUCOSE,POINT OF CARE 268 MG/DL (70-110)
[2016-08-22 18:18] LABS: GLUCOSE COMMENT 1 Received Meds; GLUCOSE,POINT OF CARE 249 MG/DL (70-110)
[2016-08-22 18:18] LABS: GLUCOSE COMMENT 1 Received Meds; GLUCOSE,POINT OF CARE 320 MG/DL (70-110)
[2016-08-22 18:18] LABS: GLUCOSE COMMENT 1 Received Meds; GLUCOSE,POINT OF CARE 372 MG/DL (70-110)
[2016-08-23 06:30] LABS: GLUCOSE COMMENT 1 Received Meds; GLUCOSE,POINT OF CARE 384 MG/DL (70-110)
[2016-08-23 06:30] LABS: GLUCOSE COMMENT 1 Received Meds; GLUCOSE,POINT OF CARE 395 MG/DL (70-110)
[2016-08-23 06:30] LABS: GLUCOSE COMMENT 1 Received Meds; GLUCOSE,POINT OF CARE 322 MG/DL (70-110)
[2016-08-23 06:30] LABS: GLUCOSE COMMENT 1 Received Meds; GLUCOSE,POINT OF CARE 372 MG/DL (70-110)
[2016-09-23] MEDS ORDERED: GABA250S NG (22:47)
[2016-10-07] MEDS ORDERED: ASPI81 NG (19:48)
[2016-10-07] MEDS ORDERED: CLIN300C3 NG (19:48)
[2016-10-07] MEDS ORDERED: ASCO500 NG (19:48)
[2016-10-07] MEDS ORDERED: LACT1CAP62 NG (19:48)
[2016-10-07] MEDS ORDERED: COLL30OI TP (19:58)
[2016-10-07] MEDS ORDERED: ACET-2247 NG (19:58)
[2016-10-07] MEDS ORDERED: HYDR-305 PO (19:58)
[2016-10-07] MEDS ORDERED: BALS60OI TP (19:58)
[2016-10-07] MEDS ORDERED: MOM30 PO (19:58)
[2016-10-07] MEDS ORDERED: POLY15DR38 OU (19:58)
[2016-10-07] MEDS ORDERED: TAMS0.4C32 PO (19:58)
[2016-10-07] MEDS ORDERED: INSREG SQ (20:02)
== END 2016-08-17 18:59 | DRG 853 ==
LOC: EMS 20:00 → 5N 08-07 00:30 → 5S 08-13 21:00
PROVIDERS: ADMIT Hospitalist; ATTEND Hospitalist
PROC: 30233N1 Transfusion of Nonautologous Red Blood Cells into Peripheral Vein, Percutaneous Approach (ICD-10-PCS; principal; 2016-08-11)
PROC: 0Y6T0Z0 Detachment at Right 3rd Toe, Complete, Open Approach (ICD-10-PCS; 2016-08-15)
DX: A41.89 Other specified sepsis (principal); E43 Unspecified severe protein-calorie malnutrition; N17.0 Acute kidney failure with tubular necrosis; E11.52 Type 2 diabetes mellitus with diabetic peripheral angiopathy with gangrene; E87.0 Hyperosmolality and hypernatremia; A04.7 Enterocolitis due to Clostridium difficile; M86.9 Osteomyelitis, unspecified; E87.2 Acidosis; N40.0 Benign prostatic hyperplasia without lower urinary tract symptoms; B96.20 Unspecified Escherichia coli [E. coli] as the cause of diseases classified elsewhere; E11.22 Type 2 diabetes mellitus with diabetic chronic kidney disease; E11.69 Type 2 diabetes mellitus with other specified complication; E78.5 Hyperlipidemia, unspecified; E83.39 Other disorders of phosphorus metabolism; R36.9 Urethral discharge, unspecified; E83.42 Hypomagnesemia; D64.9 Anemia, unspecified; E87.6 Hypokalemia; I12.9 Hypertensive chronic kidney disease with stage 1 through stage 4 chronic kidney disease, or unspecified chronic kidney disease; I25.10 Atherosclerotic heart disease of native coronary artery without angina pectoris; J44.9 Chronic obstructive pulmonary disease, unspecified; N18.9 Chronic kidney disease, unspecified; Z66 Do not resuscitate; R13.10 Dysphagia, unspecified; Z86.73 Personal history of transient ischemic attack (TIA), and cerebral infarction without residual deficits; Z87.440 Personal history of urinary (tract) infections; Z89.429 Acquired absence of other toe(s), unspecified side; Z68.24 Body mass index [BMI] 24.0-24.9, adult
CPT/HCPCS: 71250; 72192; 74000; 74150; 76770; 82570; 82962; 83605; 83735; 84100; 84132; 84300; 84540; 86850; 86900; 86901; 86920; 87040; 87070; 87081; 87086; 87324; 87449; 88305; 88311; 89050; 90471; 92526; 92610; 93005; 96365; 96367; 96375; 99285; C9113; J1644; J1815; J2270; J2543; J3475; J3480; J3490; J7050; J7060; J7120; J7131; P9016; P9041; P9046

== ENCOUNTER 2016-09-23 22:29 | Emergency (ER) | payer MEDICARE, MEDICAID ==
[~2016-09-23] VITALS: Ht 157.5 cm; Wt 60.4 kg
[~2016-09-23 22:29] MED LIST changes: +ACET650S14 PR; +BALS60OI TP; -FERR-89 NG; +FERR-89 PO; +HYDR-309 PO; -OMEP20 NG; +OMEP20 PO
[2016-09-23] MEDS ORDERED: DSS100 PO (22:47)
[2016-09-23] MEDS ORDERED: [UNRECOGNIZED DRUG - CODE] PO (22:47)
[2016-09-23] MEDS ORDERED: METO25 PO (22:47)
[2016-09-23] MEDS ORDERED: AMLO-511 PO (22:47)
[2016-09-23] MEDS ORDERED: TAMS0.4C32 PO (22:47)
[2016-09-23] MEDS ORDERED: GABA250S PO (22:47)
[2016-09-24 00:56] VITALS: BP 135/71
== END 2016-09-24 00:58 | disposition home or self-care (01) ==
LOC: EMS 22:35
DX: Z46.89 Encounter for fitting and adjustment of other specified devices (principal); I10 Essential (primary) hypertension; E11.9 Type 2 diabetes mellitus without complications; Z86.73 Personal history of transient ischemic attack (TIA), and cerebral infarction without residual deficits; E78.5 Hyperlipidemia, unspecified; N40.0 Benign prostatic hyperplasia without lower urinary tract symptoms
CPT/HCPCS: 82962; 99284

== ENCOUNTER 2016-09-29 01:31 | Emergency (ER) | payer MEDICARE, MEDICAID ==
[~2016-09-29] VITALS: Ht 162.6 cm; Wt 75.0 kg
[~2016-09-29 01:31] MED LIST changes: +AMLO-511 PO; -ASCO500 PO; -ASPI-891 PO; +FERR-89 NG; -FERR-89 PO; -GABA-529 PO; +GABA250S NG; -METF850T2 PO; +METO25 PO; +OMEP20 NG; -OMEP20 PO; +[UNRECOGNIZED DRUG - CODE] PO
[2016-09-29 01:47] LABS: GLUCOSE,POINT OF CARE 243 MG/DL (70-110)
[2016-09-29 03:46] VITALS: BP 126/83
[2016-10-07] MEDS ORDERED: LACT1CAP62 NG (19:48)
[2016-10-07] MEDS ORDERED: CLIN300C3 NG (19:48)
[2016-10-07] MEDS ORDERED: ASCO500 NG (19:48)
[2016-10-07] MEDS ORDERED: ASPI81 NG (19:48)
[2016-10-07] MEDS ORDERED: BALS60OI TP (19:58)
[2016-10-07] MEDS ORDERED: MOM30 PO (19:58)
[2016-10-07] MEDS ORDERED: HYDR-305 PO (19:58)
[2016-10-07] MEDS ORDERED: COLL30OI TP (19:58)
[2016-10-07] MEDS ORDERED: ACET-2247 NG (19:58)
[2016-10-07] MEDS ORDERED: POLY15DR38 OU (19:58)
[2016-10-07] MEDS ORDERED: TAMS0.4C32 PO (19:58)
[2016-10-07] MEDS ORDERED: INSREG SQ (20:02)
== END 2016-09-29 05:03 | disposition home or self-care (01) ==
LOC: EMS 01:32
DX: Z46.82 Encounter for fitting and adjustment of non-vascular catheter (principal); I10 Essential (primary) hypertension; E11.9 Type 2 diabetes mellitus without complications; Z79.4 Long term (current) use of insulin
CPT/HCPCS: 82962; 99284